=== PATIENT | male | born 1965 | race Caucasian/White ===

== ENCOUNTER 2017-03-30 16:55 | Inpatient (IN) | payer OTHER ==
[2017-03-30] VITALS (8 sets, daily range): BP systolic 71–116; BP diastolic 48–73; PULSE 119–132; TEMP 37.6; O2SAT 91–100; Ht 180.3 cm; Wt 119.5 kg
[~2017-03-30] VITALS: Ht 180.3 cm; Wt 119.5 kg
[~2017-03-30 16:55] MED LIST: CLOP1TAB15 PO; CLR10 PO; ETOMIDATE 2 MG/ML 20 ML VIAL IV ONE; FLNIN NAE; LSXUNK; PANT40TA PO; ROCURONIUM BROMIDE 10 MG/ML 10 ML VIAL IV ONE; SYMIN/8045 INH; [UNRECOGNIZED DRUG - REMARK]
[2017-03-30] MEDS ORDERED: NITROGLYCERIN 0.4 MG SL PER TAB CHARGE ONE (17:00)
[2017-03-30] MEDS ORDERED: RAPID SEQUENCE INDUCTION BAG ONE (17:07)
[2017-03-30 17:32] LABS: ISTAT HEMOGLOBIN 19.7 g/dl (14.0-18.0); ISTAT IONIZED CALCIUM 1.06 mmol/l (1.12-1.32)
[2017-03-30 17:38] LABS: VEN BLD GAS O2 SATURATION 65.7 %; VEN BLOOD GAS BASE EXCESS -5.9 mEq/L
[2017-03-30] MEDS ORDERED: PROPOFOL IV EMULSION 10 MG/ML 100 ML VIAL IV ONE ×2 (17:39→22:10)
[2017-03-30 17:40] LABS: BASO % 0.5 %; BASO ABS # 0.09 K/uL (0-0.2); COMPLETE YES; EOS % 1.7 %; HEMATOCRIT 52.8 % (42-52); IG% 0.6 %; LYMPH % 20.6 %; LYMPH ABS # 3.87 K/uL (1.2-3.4); MEAN CELL VOLUME 94.1 fL (80-100); MEAN CORPUSCULAR HEMOGLOBIN 31.2 pg (25-34); MEAN CORPUSCULAR HGB CONC 33.1 g/dl (32-36); MEAN PLATELET VOLUME 9.4 fL (7.4-10.4); MONO % 5.6 %; PLATELET COUNT 303 K/uL (130-400); RED BLOOD COUNT 5.61 M/uL (4.7-6.1); WHITE BLOOD COUNT 18.76 K/uL (4.8-10.8)
[2017-03-30] MEDS ORDERED: FENTANYL 1250MCG/250ML NSS 250 ML IV PRN (17:45)
[2017-03-30] MEDS ORDERED: PROPOFOL IV EMULSION 10 MG/ML 100 ML VIAL IV PRN (17:45)
[2017-03-30 17:51] LABS: PROTHROMBIN TIME (PATIENT) 10.7 SECONDS (9.0-12.0)
--- NOTE | 2017-03-30 17:54 | DIAGNOSTIC IMAGING REPORT ---
CHEST ONE VIEW PORTABLE CLINICAL HISTORY: EVALUATE RESPIRATORY DISTRESS. DYSPNEA dyspnea COMPARISON STUDY: 12/22/2010 FINDINGS: Interval median sternotomy. Components of congestive failure versus pulmonary edema are present. An endotracheal tube is present 3.6 cm above the mary. IMPRESSION: 1. Endotracheal tube 3.6 cm above the mary. 2. Congestive failure versus pulmonary edema. The above report was generated using voice recognition software. It may contain grammatical, syntax or spelling errors. Electronically signed by: Mark Rascon M.D. 03/30/2017 5:53 PM Dictated Date/Time: 03/30/2017 5:51 PM
[2017-03-30 17:56] LABS: ISTAT ARTERIAL BLOOD GAS HCO3 26 meq/L (19-24); ISTAT ARTERIAL BLOOD GAS PCO2 78 mmHg (35-46); ISTAT ARTERIAL BLOOD GAS PO2 113 mmHg (80-95); ISTAT ARTERIAL BLOOD GAS pH 7.14 (7.35-7.45); ISTAT CARBON DIOXIDE 29 mEq/l (24-31); ISTAT HEMATOCRIT 54 % (42-52); ISTAT HEMOGLOBIN 18.4 g/dl (14.0-18.0); ISTAT SODIUM 135 mEq/L (135-144)
[2017-03-30] MEDS ORDERED: VNTHFA/IN INH (17:56)
[2017-03-30] MEDS ORDERED: ADENOSINE IV SOLN 3 MG/ML 2 ML VIAL ONE (17:58)
[2017-03-30] MEDS ORDERED: RAPID SEQUENCE INDUCTION BAG PRN (18:00)
[2017-03-30] MEDS ORDERED: AMIODARONE / D5W 200 ML IV SCH (18:15)
[2017-03-30] MEDS ORDERED: MIDAZOLAM HCL 5 MG/ML 2ML VIAL IV STA (18:25)
[2017-03-30] MEDS ORDERED: MIDAZOLAM HCL 1 MG/ML 2ML VIAL ONE ×2 (18:26→21:37)
[2017-03-30 18:47] LABS: URINE APPEARANCE CLEAR (CLEAR); URINE COLOR DK YELLOW; URINE EPITHELIAL CELL AUTO 20-30 /lpf (0-5); URINE NITRITE NEG (NEG); URINE SPECIFIC GRAVITY 1.028 (1.000-1.030); UROBILINOGEN NEG (NEG)
[2017-03-30 18:48] LABS: MANUAL MICROSCOPIC REQUIRED? NO; REVIEW REQ? YES
[2017-03-30 18:49] LABS: URINE BILIRUBIN NEG (NEG)
--- NOTE | 2017-03-30 18:54 | EMERGENCY ROOM VISIT NOTE ---
History Report prepared by Farrukhibjulio cesar: Dustin Boykin Under the Supervision of: Dr. Carlos Camacho D.O. First contact with patient: 16:51 Stated Complaint: CARDIAC History of Present Illness The patient is a 51 year old male who presents to the Emergency Room by EMS with complaints of persistent shortness of breath beginning 1.5 hours ago. He also complains of chest "tightness". He has a history of COPD, [place], quadruple bypass, and asthma. The patient's most recent cardiac catheterization was four years ago. He states the has not had a cardiac stress test for "a long time". He has no history of pulmonary edema. The patient states that his current symptoms began suddenly. He states that his shortness of breath is worsened with laying flat. He denies any leg swelling. The patient is on blood thinners. He has been intubated in the past. Source of History: patient Onset: 1.5 hours ago Quality: other (shortness of breath) Timing: other (persistent) Modifying Factors (Worsening): other (laying flat) Associated Symptoms: + chest pain ("tightness") Note: The patient denies any leg swelling. Review of Systems See HPI for pertinent positives & negatives. A total of 10 systems reviewed and were otherwise negative. Past Medical & Surgical Medical Problems: (1) Asthma (2) COPD (chronic obstructive pulmonary disease) (3) Myocardial infarction (4) Respiratory failure with hypoxia Surgical Problems: (1) History of quadruple bypass Family History No pertinent family history stated. Social History Alcohol Use: none Occupation Status: employed Current/Historical Medications Unable to Obtain Active Prescriptions or Reported Meds Allergies Coded Allergies: No Known Allergies (Verified , 05/23/11) Physical Exam Vital Signs Date Time Temp Pulse Resp B/P (MAP) Pulse Ox O2 Delivery O2 Flow Rate FiO2 03/30/17 20:55 70 03/30/17 20:45 113 24 61/50 95 Room Air 03/30/17 20:16 104/73 03/30/17 20:07 97/76 03/30/17 20:06 117 22 97 03/30/17 20:01 97/76 03/30/17 19:51 121 22 98 03/30/17 19:46 105/71 03/30/17 19:45 126 96 03/30/17 19:36 102/69 03/30/17 19:31 92/80 9/5/17 19:30 130 96 03/30/17 19:16 116/85 03/30/17 19:15 133 94 03/30/17 19:01 113/80 03/30/17 19:00 132 22 97 03/30/17 18:57 136 22 121/78 97 Mechanical Ventilator 100 03/30/17 18:36 108/77 03/30/17 18:35 147 22 98 03/30/17 18:31 111/90 03/30/17 18:30 89 Non-Rebreather 15.0 03/30/17 18:27 132/108 03/30/17 18:25 159 22 98 03/30/17 18:21 155/110 03/30/17 18:16 166/101 03/30/17 18:15 170 22 98 03/30/17 18:11 161/119 03/30/17 18:06 146/125 03/30/17 18:05 177 22 97 03/30/17 18:00 178 115/119 96 Mechanical Ventilator 100 03/30/17 17:50 177 170/112 96 Mechanical Ventilator 100 03/30/17 17:40 165 155/105 95 Mechanical Ventilator 100 03/30/17 17:35 164 142/99 94 Mechanical Ventilator 100 03/30/17 17:35 100 03/30/17 17:23 156 03/30/17 17:23 191 86/62 87 Ambu-Bag 03/30/17 17:17 166 105/65 94 Non-Rebreather 15.0 03/30/17 17:11 176 03/30/17 17:00 37.4 169 40 115/91 89 Non-Rebreather 15.0 03/30/17 17:00 Non-Rebreather 15.0 Physical Exam GENERAL: Patient is awake, alert, very anxious appearing and appears to be in significant distress. Very diaphoretic. EYES: The conjunctivae are clear. The pupils are round and reactive. EARS, NOSE, MOUTH AND THROAT: The nose is without any evidence of any deformity. Mucous membranes are moist tongue is midline NECK: The neck is nontender and supple. RESPIRATORY: Diminished throughout with significant tachypnea and conversational dyspnea. Rales throughout the left lung field. CARDIOVASCULAR: Tachycardic but regular. No definite murmur to auscultation. GASTROINTESTINAL: The abdomen is soft. Bowel sounds are present in all quadrants. Abdomen is nontender MUSCULOSKELETAL/EXTREMITIES: There is no evidence of gross deformity full range of motion is noted in the hips and shoulders. Pedal edema bilaterally. SKIN: Cool and diaphoretic. There is no obvious evidence of any rash. There are no petechiae, pallor or cyanosis noted. NEUROLOGIC: Patient is awake alert and oriented x3. Medical Decision & Procedures ER Provider Diagnostic Interpretation: X-ray results as stated below per interpretation by me and the radiologist. CHEST ONE VIEW PORTABLE FINDINGS: Interval median sternotomy. Components of congestive failure versus pulmonary edema are present. An endotracheal tube is present 3.6 cm above the mary. IMPRESSION: 1. Endotracheal tube 3.6 cm above the mary. 2. Congestive failure versus pulmonary edema. The above report was generated using voice recognition software. It may contain grammatical, syntax or spelling errors. Electronically signed by: Mark Rascon M.D. Laboratory Results Test 03/30/17 17:20 03/30/17 17:29 03/30/17 17:42 03/30/17 17:47 Bedside Chloride 105 mEq/L (101-112) Bedside Total CO2 23 mEq/l (24-31) Bedside Blood Urea Nitrogen 19 mg/dl (7-18) Bedside Creatinine 1.0 mg/dl (0.6-1.3) Bedside Glucose (other) 222 mg/dl (70-99) Bedside Ionized Calcium (Bautista) 1.06 mmol/l (1.12-1.32) Venous Blood pH 7.06 (7.36-7.41) Venous Blood Partial Pressure CO2 100 mmHg (38.0-50.0) Venous Blood Partial Pressure O2 46 mmHg Venous Blood HCO3 28 mmol/L Venous Blood Oxygen Saturation 65.7 % Venous Blood Base Excess -5.9 mEq/L Creatine Kinase MB 7.4 ng/ml (0.5-3.6) Creatine Kinase MB Ratio (0-3.0) Pro-B-Type Natriuretic Peptide 2515 pg/ml (0-900) Bedside Hemoglobin 18.4 g/dl (14.0-18.0) Bedside Hematocrit 54 % (42-52) Bedside Sodium 135 mEq/L (135-144) Bedside Potassium 4.3 mEq/L (3.3-5.0) Urine Color DK YELLOW Urine Appearance CLEAR (CLEAR) Urine pH 5.0 (4.5-7.5) Urine Specific [place] 1.028 (1.000-1.030) Urine Protein 2+ (NEG) Urine Glucose (UA) NEG (NEG) Urine Ketones TRACE (NEG) Urine Occult Blood TRACE (NEG) Urine Nitrite NEG (NEG) Urine Bilirubin NEG (NEG) Urine Urobilinogen NEG (NEG) Urine Leukocyte Esterase NEG (NEG) Urine WBC (Auto) 1-5 /hpf (0-5) Urine RBC (Auto) 0-4 /hpf (0-4) Urine Hyaline Casts (Auto) 10-30 /lpf (0-5) Urine Epithelial Cells (Auto) 20-30 /lpf (0-5) Urine Bacteria (Auto) NEG (NEG) Urine Pathogenic Casts 0-3 GRANULAR CASTS /lpf (0) Urine Opiates Screen NEG (NEG) Urine Methadone, Qualitative NEG (NEG) Urine Barbiturates NEG (NEG) Urine Phencyclidine (PCP) Level NEG (NEG) Ur Amphetamine/Methamphetamine NEG (NEG) MDMA (Ecstasy) Screen NEG (NEG) Urine Benzodiazepines Screen NEG (NEG) Urine Cocaine Metabolite NEG (NEG) Urine Marijuana (THC) NEG (NEG) Test 03/30/17 18:19 03/30/17 19:18 03/30/17 19:19 Bedside Lactic Acid Venous 3.04 mmol/L (0.90-1.70) Arterial Blood pH 7.16 (7.35-7.45) Arterial Blood Partial Pressure CO2 80 mmHg (35-46) Arterial Blood Partial Pressure O2 245 mm/Hg (80-95) Arterial Blood HCO3 28 mmol/L (19-24) Arterial Blood Oxygen Saturation 99.6 % (90-95) Arterial Blood Base Excess -3.5 mEq/L (-9-1.8) Arterial Blood Gas Delivery 100% Anjel Test POS (POS) Total Creatine Kinase 323 U/L (39-308) Procalcitonin 0.09 ng/ml (0-0.5) Chemistry Specimen Hemolysis Date/Time Source Procedure Growth Status 03/30/17 19:40 Nasal MRSA DNA Surveillance Screen - Final Specimen Negative for MRSA by DNA Probe Complete Laboratory results per my review. Medications Administered Medications (Trade) Dose Ordered Sig/Wyatt Route Start Time Stop Time Status Last Admin Dose Admin Nitroglycerin (Nitrostat Tab) 0.4 mg STK-MED ONCE .ROUTE 03/30/17 17:00 03/30/17 17:01 DC 03/30/17 17:00 0.4 MG Miscellaneous (Rapid Sequence Induction Bag) 1 ea STK-MED ONCE N/A 03/30/17 17:07 03/30/17 17:08 DC 03/30/17 17:07 1 EA Propofol (Diprivan Iv Emulsion 100ml Vial) 1 dose UD PRN IV 03/30/17 17:45 03/30/17 20:56 DC 03/30/17 17:40 1 DOSE Fentanyl Citrate 250 ml @ 0 mls/hr Q0M PRN IV 03/30/17 17:45 03/30/17 20:56 DC 03/30/17 18:05 10 MLS/HR Adenosine (Adenosine IV) 12 mg STK-MED ONCE .ROUTE 03/30/17 17:58 03/30/17 17:59 DC 03/30/17 18:00 12 MG Amiodarone HCL/ Dextrose 200 ml @ 33.3 mls/hr Q6H1M IV 03/30/17 18:15 03/30/17 22:01 DC 03/30/17 18:18 33.3 MLS/HR Midazolam HCl (Versed Inj) 4 mg STK-MED ONCE .ROUTE 03/30/17 18:26 03/30/17 18:27 DC 03/30/17 18:30 4 MG Furosemide (Lasix Inj) 40 mg NOW STAT IV 03/30/17 19:09 03/30/17 19:10 DC 03/30/17 19:24 40 MG Piperacillin Sod/ Tazobactam Sod (Zosyn Iv) 4.5 gm NOW STAT IV 03/30/17 20:44 03/30/17 20:46 DC 03/30/17 22:07 4.5 GM Sodium Chloride 500 ml @ 999 mls/hr Q31M STAT IV 03/30/17 20:46 03/30/17 21:16 DC 03/30/17 20:46 999 MLS/HR Sodium Bicarbonate (Sodium Bicarbonate 8.4% Inj) 100 ml STK-MED ONCE IV 03/30/17 20:50 03/30/17 20:51 DC 03/30/17 20:50 100 ML Sodium Chloride 38.5 meq/Sodium Bicarbonate 150 meq/Sterile Water 1,150 ml @ 150 mls/hr Q7H40M IV 03/30/17 21:00 03/31/17 02:44 DC 03/30/17 22:05 150 MLS/HR Norepinephrine Bitartrate 8 mg/ Dextrose 508 ml @ 0 mls/hr Q0M PRN IV 03/30/17 20:51 04/29/17 20:50 03/30/17 21:08 47.6 MLS/HR Albumin Human (Albumin 25%) 25 gm ONE ONCE IV 03/30/17 21:00 03/30/17 21:16 DC 03/30/17 22:18 25 GM Midazolam HCl 250 ml @ 0 mls/hr Q0M PRN IV 03/30/17 20:56 04/29/17 20:55 03/30/17 22:06 2 MLS/HR Procedure Endotracheal Intubation Indication respiratory failure. The patient was on 100% oxygen via NRB prior to the procedure. Suction, airway equipment, RSI drugs, respiratory equipment, and appropriate personnel were prepared prior to the initiation of the procedure. A time out was taken. Induction was performed with Etomidate and Rocuronium. After observing the clinical benefit of the medications, the airway was easily visualized utilizing a 4-0 GlideScope. A 8-0 size ETT tube was placed atraumatically to 24 cm at the lip using standard technique. The cuff inflated without signs of malfunction. There were bilateral breath sounds, positive colormetric change, no gastric sounds, a good capnography waveform, and post procedure pulse oximetry was 93%. Post intubation sedation and paralysis was administered using Propofol. There were no complications. ECG Indication: SOB/dyspnea Rate (beats per minute): 164 Rhythm: sinus tachycardia Findings: RBBB, no ectopy, other (Diffuse ST abnormalities) Comparison ECG Date: December 12, 2010 Change: Changes are new. ED Course 1655: The patient was evaluated in room A1. A complete history and physical examination were performed. 1700: Ordered Nitrostat 0.4 mg SL. 1706: The patient was placed on BiPAP. 1719: The patient's blood pressure has dropped slightly to 105/65. Administered rocuronium 80 mg IV and Etomidate 40 mg IV. 1720: I attempted to intubate the patient. Unsuccessfully. His oxygen saturations have decreased to the 60's. 1723: The patient's oxygen saturation has improved to the 80's. 1724: The patient's blood pressure has decreased to 86/62. 1725: I successfully intubated the patient. See the procedure note for details. 1736: The patients blood pressure has increased to 142/99. 1745: Ordered Fentanyl Citrate 250 mL IV Titration, Propofol 1 dose IV Titration 1815: Ordered Amiodarone HCl/Dextrose 200 mL @ 33.3 mL IV. 1825: Ordered Versed Inj 4 mg IV. 1835: I spoke with Dr. Menchaca of the [facility] [place]. The patient will be evaluated for further management and care. Medical Decision Differential diagnosis: Etiologies such as infections, reactive airway disease, pneumonia, pneumothorax , COPD, CHF, cardiac ischemia, pulmonary embolism, musculoskeletal, gastrointestinal, as well as others were entertained. Nursing notes reviewed. Additional history is obtained from the prehospital personnel. The patient is a 51-year-old male who presented to the emergency department for an evaluation of shortness of breath. The patient describes an acute onset of shortness of breath which was accompanied by diaphoresis chest discomfort and orthopnea. The patient called 911 and the patient was brought to the emergency department by ambulance. They were unable to obtain IV access in the patient was unable to tolerate BiPAP prior to arrival. We attempted to place BiPAP in the emergency Department as well as 100% oxygen. Patient continued to decompensate and had very significant respiratory distress. He was intubated in the emergency department with a very significant quick desaturation of his oxygen level during intubation. Ultimately he was intubated and placed on a ventilator. Sedation was ordered. The patient's oxygen saturation was improved but he continued to have acidosis with retention of CO2. He had a wide complex tachycardia which continued to increase. He was tried a course of adenosine which did not affect his rhythm. He was then started on amiodarone. With sedation proper oxygenation Lasix and the amiodarone the patient's rate slowed down. I discussed his case with the on-call [facility] hospitalist group as well as the on-call [facility] geophysics scientist. He was evaluated by the geophysics scientist. He recommended diuresis and also recommended cardioversion. I'm unsure if this affected the rhythm but on follow-up EKG the patient did have what appeared to be more of a sinus tachycardia with first-degree AV block as well as a bundle branch block pattern. This may represent an atrial fibrillation or an atrial flutter with rapid ventricular response that was converted with the cardioversion but I am unsure at this time. The patient was reevaluated multiple times. Certainly the patient was found have a mildly elevated troponin and may require further cardiac workup but his condition continued to improve. Consults Time Called: 1819 Consulting Physician: Dr. Menchaca -MNP Returned Call: 1829 I discussed the patient's case with Dr. Menchaca. The patient will be evaluated for further management. Additional Consults: Time Called: 1829 Consulted Physician: Dr. Perez -Cardiology Returned Call: 1834 Additional Comments: I discussed the patient's case with Dr. Perez. He will come evaluate the patient. Time Called: 2044 Consulted Physician: [facility] Resident Returned Call: 2044 Additional Comments: I made the admitting team aware of the blood pressure change. The patient was ordered a small fluid bolus as well as IV antibiotics. Impression Primary Impression: Respiratory failure Additional Impressions: Pulmonary edema Wide-complex tachycardia Polycythemia Respiratory acidosis NSTEMI (non-ST elevated myocardial infarction) Critical Care I have personally spent greater than 90 minutes of critical care time in the direct management of this patient. This includes bedside care, interpretation of diagnostic studies, and testing, discussion with consultants, patient, and family members, and other required patient management activities. This 90 minutes is in excess of all separately billable procedures. Scribe Attestation The scribe's documentation has been prepared under my direction and personally reviewed by me in its entirety. I confirm that the note above accurately reflects all work, treatment, procedures, and medical decision making performed by me. Departure Information Dispostion Being Evaluated By Hospitalist Prescriptions Unable to Obtain Active Prescriptions or Reported Meds Referrals Roque Gould M.D. (PCP) Problem Qualifiers Primary Impression: Respiratory failure Chronicity: acute Respiratory failure complication: hypoxia and hypercapnia Qualified Codes: J96.01 - Acute respiratory failure with hypoxia; J96.02 - Acute respiratory failure with hypercapnia Additional Impressions: Pulmonary edema Chronicity: acute Qualified Codes: J81.0 - Acute pulmonary edema
[2017-03-30 18:59] LABS: URINE PATH CASTS 0-3 GRANULAR CASTS /lpf (0)
[2017-03-30 18:59] LABS: ALB/GLOB RATIO 0.8 (0.9-2); ALKALINE PHOSPHATASE 112 U/L (45-117); ALT/SGPT 29 U/L (12-78); BLOOD UREA NITROGEN 13 mg/dl (7-18); BUN/CREATININE RATIO 10.2 (10-20); CALCIUM 8.2 mg/dl (8.5-10.1); CARBON DIOXIDE 26 mmol/L (21-32); CHLORIDE 102 mmol/L (98-107); GLUCOSE 255 mg/dl (70-99); SODIUM 137 mmol/L (136-145)
[2017-03-30 19:00] LABS: BENZODIAZEPINE, URINE NEG (NEG); COCAINE,URINE NEG (NEG); PHENCYCLIDINE, URINE NEG (NEG)
[2017-03-30] MEDS ORDERED: FUROSEMIDE 40 MG/4 ML VIAL IV STA (19:09)
[2017-03-30 19:31] LABS: ARTERIAL BLD GAS O2 SATURATION 99.6 % (90-95); ARTERIAL BLOOD GAS BASE EXCESS -3.5 mEq/L (-9-1.8); ARTERIAL BLOOD GAS HCO3 28 mmol/L (19-24); ARTERIAL BLOOD GAS PO2 245 mm/Hg (80-95)
[2017-03-30 19:33] LABS: ALLEN TEST POS (POS); O2 ADMINISTRATION 100%
[2017-03-30 19:35] LABS: ARTERIAL BLOOD GAS pH 7.16 (7.35-7.45)
[2017-03-30 20:10] LABS: POTASSIUM 4.6 mmol/L (3.5-5.1)
--- NOTE | 2017-03-30 20:24 | Cardiology Consultation ---
Cardiology Consultation Date of Consultation: Mar 30, 2017. Requesting Physician: Doug Reason for Consultation: tachycardia Pt evaluation today including: physical exam, chart review, lab review, review of studies, conversation w/ security and privacy consultant, review of inpatient medication list, conversation w/ attending History of Present Illness The patient is a 51-year-old gentleman with a past medical history of coronary artery disease and congestive heart failure presented to [facility] after approximately 1-2 hours of worsening dyspnea. According to the history the patient experienced the relatively acute onset of dyspnea and chest tightness. He summoned an ambulance and brought to [facility] where he was discovered to be quite dyspneic and hypoxic. Patient did have a decompensation required endotracheal intubation with mechanical ventilation. Little additional history was obtained prior to intubation. Past Medical/Surgical History Coronary artery disease Patient had non ST elevation myocardial infarction 2010 which led to coronary angiography. He was discovered to have left main coronary disease and was referred for surgical intervention. Patient underwent 4 vessel bypas in 2010 with IRBY to LAD, saphenous vein graft to diagonal, om and PDA. Ischemic cardiomyopathy, last echocardiogram reported to be EF of 45 percent History of right femoral artery injury during cardiac catheterization Hyperlipidemia Asthma Hypertension Past surgical history Coronary artery bypass grafting x4 2010 Operative repair of right femoral artery injury 2010 Social History Smoking Status: Unknown if Ever Smoked Review of Systems Review of systems cannot be obtained as the patient is currently sedated and intubated Allergies Coded Allergies: No Known Allergies (Verified , 05/23/11) Medications Current Inpatient Medications Medications (Trade) Dose Ordered Sig/Wyatt Route Start Time Stop Time Status Last Admin Dose Admin Propofol (Diprivan Iv Emulsion 100ml Vial) 1 dose UD PRN IV 03/30/17 17:45 04/02/17 17:44 03/30/17 17:40 1 DOSE Fentanyl Citrate 250 ml @ 0 mls/hr Q0M PRN IV 03/30/17 17:45 04/13/17 17:44 03/30/17 18:05 10 MLS/HR Amiodarone HCL/ Dextrose 200 ml @ 33.3 mls/hr Q6H1M IV 03/30/17 18:15 03/31/17 00:15 03/30/17 18:18 33.3 MLS/HR Physical Exam Vital Signs Past 12 Hours Date Time Temp Pulse Resp B/P (MAP) Pulse Ox O2 Delivery O2 Flow Rate FiO2 03/30/17 19:46 105/71 03/30/17 19:45 126 96 03/30/17 19:36 102/69 03/30/17 19:31 92/80 03/30/17 19:30 130 96 03/30/17 19:16 116/85 03/30/17 19:15 133 94 03/30/17 19:01 113/80 03/30/17 19:00 132 22 97 03/30/17 18:57 136 22 121/78 97 Mechanical Ventilator 100 03/30/17 18:36 108/77 03/30/17 18:35 147 22 98 03/30/17 18:31 111/90 03/30/17 18:30 89 Non-Rebreather 15.0 03/30/17 18:27 132/108 03/30/17 18:25 159 22 98 03/30/17 18:21 155/110 03/30/17 18:16 166/101 03/30/17 18:15 170 22 98 03/30/17 18:11 161/119 03/30/17 18:06 146/125 03/30/17 18:05 177 22 97 03/30/17 18:00 178 115/119 96 Mechanical Ventilator 100 03/30/17 17:50 177 170/112 96 Mechanical Ventilator 100 03/30/17 17:40 165 155/105 95 Mechanical Ventilator 100 03/30/17 17:35 164 142/99 94 Mechanical Ventilator 100 03/30/17 17:35 100 03/30/17 17:23 156 03/30/17 17:23 191 86/62 87 Ambu-Bag 03/30/17 17:17 166 105/65 94 Non-Rebreather 15.0 03/30/17 17:11 176 03/30/17 17:00 37.4 169 40 115/91 89 Non-Rebreather 15.0 03/30/17 17:00 Non-Rebreather 15.0 Currently intubated and sedated HEENT:The sclerae are anicteric. Neuro: Unable to cooperate with the exam Neck: Redundant tissue He has palpable carotid pulses bilaterally without bruits on auscultation. The thyroid is not enlarged. Lungs: Coarse upper airway sounds with crackles throughout all lung hall. There is expiratory wheezing. He is using accessory muscles or respiration. Cardiac: Heart demonstrates a regular rhythm. Normal S1 and S2. Soft holosystolic. Pulses: The patient has palpable radial pulses bilaterally that are equal in intensity. He has good dorsalis pedis pulses bilateral Extremities: There was no evidence of hypoperfusion. There is no cyanosis or clubbing. There is no edema. Skin: Patient does have erythema to this patchy macules over his entire body. Data Laboratory Results: Last 24 Hours Test 03/30/17 17:20 03/30/17 17:29 03/30/17 17:42 03/30/17 17:47 Bedside Hemoglobin 19.7 g/dl 18.4 g/dl Bedside Hematocrit 58 % 54 % Bedside Sodium 137 mEq/L 135 mEq/L Bedside Potassium 6.0 mEq/L 4.3 mEq/L Bedside Chloride 105 mEq/L Bedside Total CO2 23 mEq/l Anion Gap 16.0 mmol/L 9.0 mmol/L Bedside Blood Urea Nitrogen 19 mg/dl Bedside Creatinine 1.0 mg/dl Bedside Glucose (other) 222 mg/dl Bedside Ionized Calcium (Bautista) 1.06 mmol/l White Blood Count 18.76 K/uL Red Blood Count 5.61 M/uL Hemoglobin 17.5 g/dL Hematocrit 52.8 % Mean Corpuscular Volume 94.1 fL Mean Corpuscular Hemoglobin 31.2 pg Mean Corpuscular Hemoglobin Concent 33.1 g/dl Platelet Count 303 K/uL Mean Platelet Volume 9.4 fL Neutrophils (%) (Auto) 71.0 % Lymphocytes (%) (Auto) 20.6 % Monocytes (%) (Auto) 5.6 % Eosinophils (%) (Auto) 1.7 % Basophils (%) (Auto) 0.5 % Neutrophils # (Auto) 13.31 K/uL Lymphocytes # (Auto) 3.87 K/uL Monocytes # (Auto) 1.05 K/uL Eosinophils # (Auto) 0.32 K/uL Basophils # (Auto) 0.09 K/uL RDW Standard Deviation 46.9 fL RDW Coefficient of Variation 13.6 % Immature Granulocyte % (Auto) 0.6 % Immature Granulocyte # (Auto) 0.12 K/uL Prothrombin Time 10.7 SECONDS Prothromb Time International Ratio 1.0 Activated Partial Thromboplast Time 25.2 SECONDS Partial Thromboplastin Ratio 1.0 Venous Blood pH 7.06 Venous Blood Partial Pressure CO2 100 mmHg Venous Blood Partial Pressure O2 46 mmHg Venous Blood HCO3 28 mmol/L Venous Blood Oxygen Saturation 65.7 % Venous Blood Base Excess -5.9 mEq/L Sodium Level 137 mmol/L Potassium Level mmol/L Chloride Level 102 mmol/L Carbon Dioxide Level 26 mmol/L Blood Urea Nitrogen 13 mg/dl Creatinine 1.30 mg/dl Est Creatinine Clear Calc Drug Dose 89.2 ml/min Estimated GFR () 72.2 Estimated GFR (Non- 62.3 BUN/Creatinine Ratio 10.2 Random Glucose 255 mg/dl Calcium Level 8.2 mg/dl Total Bilirubin 0.3 mg/dl Aspartate Amino Transf (AST/SGOT) U/L Alanine Aminotransferase (ALT/SGPT) 29 U/L Alkaline Phosphatase 112 U/L Total Creatine Kinase U/L Creatine Kinase MB 7.4 ng/ml Creatine Kinase MB Ratio Troponin I 0.515 ng/ml Pro-B-Type Natriuretic Peptide 2515 pg/ml Total Protein 7.3 gm/dl Albumin 3.3 gm/dl Globulin 4.0 gm/dl Albumin/Globulin Ratio 0.8 Chemistry Specimen Hemolysis Bedside Blood Gas pH (LAB) 7.14 Bedside Blood Gas pCO2 (LAB) 78 mmHg Bedside Blood Gas pO2 (LAB) 113 mmHg Bedside Blood Gas HCO3 (LAB) 26 meq/L Bedside Blood Gas Total CO2 29 mEq/l Bedside Blood Gas Base Excess (LAB) -3.0 meq/L Bedside Blood Gas O2 Saturation 96.0 % Urine Color DK YELLOW Urine Appearance CLEAR Urine pH 5.0 Urine Specific [place] 1.028 Urine Protein 2+ Urine Glucose (UA) NEG Urine Ketones TRACE Urine Occult Blood TRACE Urine Nitrite NEG Urine Bilirubin NEG Urine Urobilinogen NEG Urine Leukocyte Esterase NEG Urine WBC (Auto) 1-5 /hpf Urine RBC (Auto) 0-4 /hpf Urine Hyaline Casts (Auto) 10-30 /lpf Urine Epithelial Cells (Auto) 20-30 /lpf Urine Bacteria (Auto) NEG Urine Pathogenic Casts 0-3 GRANULAR CASTS /lpf Urine Opiates Screen NEG Urine Methadone, Qualitative NEG Urine Barbiturates NEG Urine Phencyclidine (PCP) Level NEG Ur Amphetamine/Methamphetamine NEG MDMA (Ecstasy) Screen NEG Urine Benzodiazepines Screen NEG Urine Cocaine Metabolite NEG Urine Marijuana (THC) NEG Test 03/30/17 18:19 03/30/17 19:18 03/30/17 19:19 Bedside Lactic Acid Venous 3.04 mmol/L Arterial Blood pH 7.16 Arterial Blood Partial Pressure CO2 80 mmHg Arterial Blood Partial Pressure O2 245 mm/Hg Arterial Blood HCO3 28 mmol/L Arterial Blood Oxygen Saturation 99.6 % Arterial Blood Base Excess -3.5 mEq/L Arterial Blood Gas Delivery 100% Anjel Test POS Potassium Level 4.6 mmol/L Aspartate Amino Transf (AST/SGOT) 48 U/L Total Creatine Kinase 323 U/L Chemistry Specimen Hemolysis Imaging: Chest x-ray demonstrated evidence of pulmonary vascular congestion EKG: Wide complex tachycardia Telemetry reviewed: Tachycardia with PVCs A limited bedside echocardiogram was performed which revealed reduced LV systolic function. RV size and function appear to be normal. There was no pericardial effusion. Assessment & Plan 1. Acute decompensated left ventricular failure: Bedside echocardiogram was performed in order to exclude pericardial effusion. Patient did appear to have some compromised LV systolic function although endocardial definition was poor. He clearly has an element of pulmonary vascular congestion. The etiology is unclear. There is a possibility that he had an arrhythmia leading up to this event which may have resolved prior to arrival. This could been atrial fibrillation. The initial rhythms are also concerning for an atrial flutter but that did not respond to any particular treatments and the current rhythm is clearly sinus. Other etiologies would include hypertensive urgency, acute valvular lesion or ischemic event. He does not appear to have a very loud murmur suggestive of an acute valvular injury. Certainly could have had an ischemic event. This point the primary goal is reducing his pulmonary vascular congestion and supporting his hemodynamics. He has been given Lasix. Nitrates could also be used if the pressure allows. Positive pressure ventilation should also help his oxygenation. 2. Coronary artery disease: Patient certainly has a history of coronary disease and may have suffered another ischemic event. He does have a mildly positive troponin already. He did have some chest pressure leading up to his admission but this is most likely related to the severe pulmonary vascular congestion. At some point we will need to explore the possibility of an ischemic event. Placing the patient on heparin infusion currently would be reasonable. 3. Tachycardia: The initial tachycardia appeared to be in SVT with atypical right bundle branch block. There are no obvious P waves and there was some concern for an atrial flutter. The patient did not respond to adenosine infusion or attempt at electrical cardioversion. Amiodarone was also employ briefly. As the patient's clinical condition stabilized he has tachycardia improved in the current telemetry would suggest that he does have a sinus rhythm at this time. Final recommendations: Continue attempts at diuresis Consider nitroglycerin infusion or paste for preload reduction if the blood pressure allows Systemic heparinization while we trend his enzymes Echocardiogram in the morning
[2017-03-30] MEDS ORDERED: PIPERACILLIN/TAZOBACTAM 4.5 GM/100ML D5W IV STA (20:44)
[2017-03-30] MEDS: LEVAQUIN 750MG / 150ML D5W IV STA ×2 (20:44→22:07)
[2017-03-30] MEDS ORDERED: SODIUM CHLORIDE 0.9% 500ML 500 ML IV STA (20:46)
[2017-03-30] MEDS ORDERED: SODIUM BICARB 8.4% INJ 50 MEQ/50 ML SYR IV ONE (20:50)
[2017-03-30] MEDS ORDERED: SOD CHLOR 14.6% 2.5MEQ/ML 38.5 MEQ, SODIUM BICARBONATE 8.4% INJ 150 MEQ in STERILE WATE... IV SCH (21:00)
[2017-03-30] MEDS ORDERED: ALBUMIN HUMAN 25% 12.5 GM/50 ML VIAL IV ONE (21:00)
[2017-03-30] MEDS: NOREPINEPHRINE BIT INJ 8 MG in DEXTROSE 5% 500ML 500 ML IV PRN (21:08)
[2017-03-30] MEDS ORDERED: LEVALBUTEROL 0.63MG/3 ML NEB INH STA (21:40)
[2017-03-30] MEDS ORDERED: IPRATROPIUM BROMIDE HFA INHALER INH STA (21:40)
[2017-03-30] MEDS ORDERED: LEValbuterol HFA 15GM INHALER INH STA (21:40)
[2017-03-30] MEDS: IPRATROPIUM BROMIDE NEB SOLN 0.02% 2.5 ML VIAL INH STA ×2 (21:40→22:05)
[2017-03-30] MEDS: MIDAZOLAM 125MG/250ML D5W 250 ML IV PRN (22:06)
[2017-03-30] MEDS ORDERED: INSULIN IV INFUSION PROTOCOL SCH (22:11)
[2017-03-30] MEDS ORDERED: GLUCOSE 40% GEL 15 GM TUBE PO PRN (22:15)
[2017-03-30] MEDS ORDERED: GLUCOSE 10 TABS/TUBE PO PRN (22:15)
[2017-03-30] MEDS ORDERED: VANCOMYCIN INJ 2,750 MG in SODIUM CHLORIDE 0.9% 500ML 500 ML IV ONE (22:15)
[2017-03-30] MEDS ORDERED: PIPERACILL/TAZOBAC CONSULT ACTIVE PRN (22:15)
[2017-03-30] MEDS ORDERED: DEXTROSE 50% 50 ML SYR IV PRN (22:15)
[2017-03-30] MEDS ORDERED: VANCOMYCIN CONSULT ACTIVE PRN (22:15)
[2017-03-30] MEDS ORDERED: GLUCAGON FOR INJ 1 MG VIAL SQ PRN (22:15)
--- NOTE | 2017-03-30 22:24 | History and Physical ---
History & Physical Date & Time of Service: Mar 30, 2017 at 22:24 Chief Complaint: Respiratory Failure With Hypoxia Primary Care Physician: Roque Gould M.D. History of Present Illness Source: hospital records 51-year-old male with a past medical history of coronary artery disease status post quadruple bypass, hyperlipidemia, asthma, hypertension presented to the ER with complaints of persistent shortness of breath and chest tightness which started 1.5 hours prior to arrival. In the ER he was found to have a wide complex tachycardia and was hypoxic. He was emergently intubated and cardiology was consulted. Chest x-ray was concerning for pulmonary edema and was given IV Lasix in the ER. Patient was treated with adenosine infusion and electrical cardioversion was also attempted unsuccessfully. He also had an amiodarone drip briefly. His blood pressure started to drop and he was started on bicarbonate drip , albumin and pressors and transferred to ICU. Past Medical/Surgical History Medical Problems: (1) Asthma Status: Chronic (2) COPD (chronic obstructive pulmonary disease) Status: Chronic (3) Myocardial infarction Status: Chronic Surgical Problems: (1) History of quadruple bypass Status: Chronic Family History noncontributory Social History Smoking Status: Unknown if Ever Smoked Smokeless Tobacco Use: No Alcohol Use: none Drug Use: none Marital Status: Housing status: lives with family Occupational Status: employed Immunizations History of Influenza Vaccine: Yes History of Tetanus Vaccine?: Yes History of Pneumococcal: Yes History of Hepatitis B Vaccine: Unknown Multi-Drug Resistant Organisms History of MDRO: No Allergies Coded Allergies: No Known Allergies (Verified , 05/23/11) Home Medications Scheduled Aspirin (Aspirin Low Strength), 324 MG NJ DAILY Atorvastatin (Atorvastatin Calcium), 80 MG NJ QAM Budesonide/Formoterol Fumarate (Symbicort 80-4.5 Mcg/Act), 2 PUFFS INH BIDR Insulin Aspart (Novolog Flexpen), 0 UNITS SC Q4H Piperacillin/Tazobactam Sod (Zosyn 4-0.5 gm), 4.5 MG IV Q6H Review of Systems Unable to obtain as the patient is currently intubated Physical Exam Vital Signs Date Time Temp Pulse Resp B/P (MAP) Pulse Ox O2 Delivery O2 Flow Rate FiO2 03/30/17 21:10 115 24 93/57 100 Mechanical Ventilator 03/30/17 20:55 70 03/30/17 20:45 113 24 61/50 95 Room Air 03/30/17 20:16 104/73 03/30/17 20:07 97/76 03/30/17 20:06 117 22 97 03/30/17 20:01 97/76 03/30/17 19:51 121 22 98 03/30/17 19:46 105/71 03/30/17 19:45 126 96 03/30/17 19:36 102/69 03/30/17 19:31 92/80 03/30/17 19:30 130 96 03/30/17 19:16 116/85 03/30/17 19:15 133 94 03/30/17 19:01 113/80 03/30/17 19:00 132 22 97 03/30/17 18:57 136 22 121/78 97 Mechanical Ventilator 100 03/30/17 18:36 108/77 03/30/17 18:35 147 22 98 03/30/17 18:31 111/90 03/30/17 18:30 89 Non-Rebreather 15.0 03/30/17 18:27 132/108 03/30/17 18:25 159 22 98 03/30/17 18:21 155/110 03/30/17 18:16 166/101 03/30/17 18:15 170 22 98 03/30/17 18:11 161/119 03/30/17 18:06 146/125 03/30/17 18:05 177 22 97 03/30/17 18:00 178 115/119 96 Mechanical Ventilator 100 03/30/17 17:50 177 170/112 96 Mechanical Ventilator 100 03/30/17 17:40 165 155/105 95 Mechanical Ventilator 100 03/30/17 17:35 164 142/99 94 Mechanical Ventilator 100 03/30/17 17:35 100 03/30/17 17:23 156 03/30/17 17:23 191 86/62 87 Ambu-Bag 03/30/17 17:17 166 105/65 94 Non-Rebreather 15.0 03/30/17 17:11 176 03/30/17 17:00 37.4 169 40 115/91 89 Non-Rebreather 15.0 03/30/17 17:00 Non-Rebreather 15.0 General Appearance: + obese, + pertinent finding (intubated) Eyes: normal inspection Neck: supple Respiratory/Chest: + respiratory distress, + accessory muscle use, + crackles, + wheezing Cardiovascular: + tachycardia Abdomen/GI: normal bowel sounds, non tender, soft Neurologic/Psych: + pertinent finding (sedated) Skin: + pertinent finding (maculopapular lesions on bilateral thighs and trunk ) Diagnostics Laboratory Results Results Past 24 Hours Test 03/30/17 17:20 03/30/17 17:29 03/30/17 17:42 03/30/17 17:47 Range/Units Bedside Hemoglobin 19.7 18.4 14.0-18.0 g/dl Bedside Hematocrit 58 54 42-52 % Bedside Sodium 137 135 135-144 mEq/L Bedside Potassium 6.0 4.3 3.3-5.0 mEq/L Bedside Chloride 105 101-112 mEq/L Bedside Total CO2 23 24-31 mEq/l Anion Gap 16.0 9.0 3-11 mmol/L Bedside Blood Urea Nitrogen 19 7-18 mg/dl Bedside Creatinine 1.0 0.6-1.3 mg/dl Bedside Glucose (other) 222 70-99 mg/dl Bedside Ionized Calcium (Bautista) 1.06 1.12-1.32 mmol/l White Blood Count 18.76 4.8-10.8 K/uL Red Blood Count 5.61 4.7-6.1 M/uL Hemoglobin 17.5 14.0-18.0 g/dL Hematocrit 52.8 42-52 % Mean Corpuscular Volume 94.1 80-100 fL Mean Corpuscular Hemoglobin 31.2 25-34 pg Mean Corpuscular Hemoglobin Concent 33.1 32-36 g/dl Platelet Count 303 130-400 K/uL Mean Platelet Volume 9.4 7.4-10.4 fL Neutrophils (%) (Auto) 71.0 % Lymphocytes (%) (Auto) 20.6 % Monocytes (%) (Auto) 5.6 % Eosinophils (%) (Auto) 1.7 % Basophils (%) (Auto) 0.5 % Neutrophils # (Auto) 13.31 1.4-6.5 K/uL Lymphocytes # (Auto) 3.87 1.2-3.4 K/uL Monocytes # (Auto) 1.05 0.11-0.59 K/uL Eosinophils # (Auto) 0.32 0-0.5 K/uL Basophils # (Auto) 0.09 0-0.2 K/uL RDW Standard Deviation 46.9 36.4-46.3 fL RDW Coefficient of Variation 13.6 11.5-14.5 % Immature Granulocyte % (Auto) 0.6 % Immature Granulocyte # (Auto) 0.12 0.00-0.02 K/uL Prothrombin Time 10.7 9.0-12.0 SECONDS Prothromb Time International Ratio 1.0 0.9-1.1 Activated Partial Thromboplast Time 25.2 21.0-31.0 SECONDS Partial Thromboplastin Ratio 1.0 Venous Blood pH 7.06 7.36-7.41 Venous Blood Partial Pressure CO2 100 38.0-50.0 mmHg Venous Blood Partial Pressure O2 46 mmHg Venous Blood HCO3 28 mmol/L Venous Blood Oxygen Saturation 65.7 % Venous Blood Base Excess -5.9 mEq/L Sodium Level 137 136-145 mmol/L Potassium Level 3.5-5.1 mmol/L Chloride Level 102 98-107 mmol/L Carbon Dioxide Level 26 21-32 mmol/L Blood Urea Nitrogen 13 7-18 mg/dl Creatinine 1.30 0.60-1.40 mg/dl Est Creatinine Clear Calc Drug Dose 89.2 ml/min Estimated GFR () 72.2 Estimated GFR (Non- 62.3 BUN/Creatinine Ratio 10.2 10-20 Random Glucose 255 70-99 mg/dl Calcium Level 8.2 8.5-10.1 mg/dl Total Bilirubin 0.3 0.2-1 mg/dl Aspartate Amino Transf (AST/SGOT) 15-37 U/L Alanine Aminotransferase (ALT/SGPT) 29 12-78 U/L Alkaline Phosphatase 112 45-117 U/L Total Creatine Kinase 39-308 U/L Creatine Kinase MB 7.4 0.5-3.6 ng/ml Creatine Kinase MB Ratio 0-3.0 Troponin I 0.515 0-0.045 ng/ml Pro-B-Type Natriuretic Peptide 2515 0-900 pg/ml Total Protein 7.3 6.4-8.2 gm/dl Albumin 3.3 3.4-5.0 gm/dl Globulin 4.0 2.5-4.0 gm/dl Albumin/Globulin Ratio 0.8 0.9-2 Chemistry Specimen Hemolysis Bedside Blood Gas pH (LAB) 7.14 7.35-7.45 Bedside Blood Gas pCO2 (LAB) 78 35-46 mmHg Bedside Blood Gas pO2 (LAB) 113 80-95 mmHg Bedside Blood Gas HCO3 (LAB) 26 19-24 meq/L Bedside Blood Gas Total CO2 29 24-31 mEq/l Bedside Blood Gas Base Excess (LAB) -3.0 -9-1.8 meq/L Bedside Blood Gas O2 Saturation 96.0 90-95 % Urine Color DK YELLOW Urine Appearance CLEAR CLEAR Urine pH 5.0 4.5-7.5 Urine Specific [place] 1.028 1.000-1.030 Urine Protein 2+ NEG Urine Glucose (UA) NEG NEG Urine Ketones TRACE NEG Urine Occult Blood TRACE NEG Urine Nitrite NEG NEG Urine Bilirubin NEG NEG Urine Urobilinogen NEG NEG Urine Leukocyte Esterase NEG NEG Urine WBC (Auto) 1-5 0-5 /hpf Urine RBC (Auto) 0-4 0-4 /hpf Urine Hyaline Casts (Auto) 10-30 0-5 /lpf Urine Epithelial Cells (Auto) 20-30 0-5 /lpf Urine Bacteria (Auto) NEG NEG Urine Pathogenic Casts 0-3 GRANULAR CASTS 0 /lpf Urine Opiates Screen NEG NEG Urine Methadone, Qualitative NEG NEG Urine Barbiturates NEG NEG Urine Phencyclidine (PCP) Level NEG NEG Ur Amphetamine/Methamphetamine NEG NEG MDMA (Ecstasy) Screen NEG NEG Urine Benzodiazepines Screen NEG NEG Urine Cocaine Metabolite NEG NEG Urine Marijuana (THC) NEG NEG Test 03/30/17 18:19 03/30/17 19:18 03/30/17 19:19 Range/Units Bedside Lactic Acid Venous 3.04 0.90-1.70 mmol/L Arterial Blood pH 7.16 7.35-7.45 Arterial Blood Partial Pressure CO2 80 35-46 mmHg Arterial Blood Partial Pressure O2 245 80-95 mm/Hg Arterial Blood HCO3 28 19-24 mmol/L Arterial Blood Oxygen Saturation 99.6 90-95 % Arterial Blood Base Excess -3.5 -9-1.8 mEq/L Arterial Blood Gas Delivery 100% Anjel Test POS POS Potassium Level 4.6 3.5-5.1 mmol/L Aspartate Amino Transf (AST/SGOT) 48 15-37 U/L Total Creatine Kinase 323 39-308 U/L Procalcitonin 0.09 0-0.5 ng/ml Chemistry Specimen Hemolysis Microbiology Results 03/30/17 Blood Culture, Received Pending 03/30/17 Blood Culture, Received Pending Diagnostic Radiology CHEST ONE VIEW PORTABLE CLINICAL HISTORY: EVALUATE RESPIRATORY DISTRESS. DYSPNEA dyspnea COMPARISON STUDY: 12/22/2010 FINDINGS: Interval median sternotomy. Components of congestive failure versus pulmonary edema are present. An endotracheal tube is present 3.6 cm above the mary. IMPRESSION: 1. Endotracheal tube 3.6 cm above the mary. 2. Congestive failure versus pulmonary edema. EKG Wide complex tachycardia Right bundle branch block Right axis deviation Abnormal ECG When compared with ECG of 22-DEC-2010 08:16, Right bundle branch block is now Present Rate has increased Right axis deviation is present Confirmed by BAR PERERA MD ([id number]) on 03/30/2017 7:45:36 PM Impression Assessment and Plan 51-year-old male with a past medical history of coronary artery disease status post quadruple bypass, hyperlipidemia, asthma, hypertension presented to the ER with complaints of persistent shortness of breath and chest tightness which started 1.5 hours prior to arrival. Wide complex tachycardia on presentation unresponsive to adenosine, amiodarone and cardioversion Acute hypoxic respiratory failure: -Status Post intubation - methylprednisone 60 mg every 8 hours - Continue Symbicort, Atrovent and Xopenex - Vancomycin and Zosyn Coronary artery disease status post quadruple bypass in 2010 - Initial troponin 0.515, troponins trended every 8 hours - Started on IV heparin - Echo ordered Attending Addendum: I have physically seen and examined this patient, have directed the resident's medical activities, and agree with the H&P as noted above with the following exceptions as noted. The patient is sedated, on the ventilator. HEENT--PERRL, mucous membranes and oropharynx dry. Neck--no JVD or bruits, thyroid normal, trachea midline, no adenopathy. Heart--tachycardic and regular, no murmurs, rubs or gallops. Lungs--few coarse breath sounds bilaterally, with accessory muscle use. Abdomen--normal bowel sounds and soft, nontender and nondistended, no hernias or masses, obese. Extremities--no cyanosis, clubbing or edema. There are good distal pulses b/l. Dermatologic--normal skin turgor, normal color, warm and dry, no abnormal lymph nodes, no rash. Neurologic--deferred on ventilator Rheumatologic--deferred on ventilator Psychiatric--deferred on ventilator. Assessment and Plan: 1. Acute respiratory failure with hypoxia and hypercapnia on the ventilator / septic shock--admit to the ICU. Give albumin 25 g IV. Normal saline 500 mL bolus now. Sodium bicarbonate 2 A now. / NSS with 3 A of sodium bicarbonate at 150 ML's per hour. Vancomycin IV, Zosyn IV and Levaquin IV. Solu-Medrol 60 mg IV every 6 hours Adjust ventilator settings. ABG now and then every morning. CBC with differential, chemistry profile, magnesium, phosphorus, PT and PTT every morning. Continue propofol drip for sedation Add Versed drip for sedation Repeat chest x-ray in the a.m. Conservation Policy Analyst consulted. Predator Control Trapper Dr. Perez consulted. Give Lasix if signs of fluid overload overnight. 2. CAD/status post quadruple bypass 2010-- Initial troponin elevated 0.515, may just be secondary to earlier wide-complex tachycardia. Follow serial troponins. Continue IV heparin. 70 minutes of critical care time spent with the patient Level of Care Critical Care Advanced Directives Existing Advance Directive: No Existing Living Will: No Existing Power of Engineering Associate: No Resuscitation Status FULL RESUSCITATION VTE Prophylaxis VTE Risk Assessment Done? Y/N: Yes Risk Level: Moderate Given or contraindicated: SCD's Social Service Consult None Apply Resident Tracking Resident Involvement: Resident Care Provided Care Provided: Adult Hospital Medicine
[2017-03-30] MEDS: METHYLPREDNISOLONE IV 60 MG in SYRINGE 0 ML IV SCH (22:34)
[2017-03-30 22:47] LABS: ISTAT ALLEN TEST Pass; ISTAT ARTERIAL BLOOD GAS HCO3 28 meq/L (19-24); ISTAT ARTERIAL BLOOD GAS PCO2 69 mmHg (35-46); ISTAT ARTERIAL BLOOD GAS PO2 87 mmHg (80-95); ISTAT ARTERIAL BLOOD GAS pH 7.22 (7.35-7.45); ISTAT CARBON DIOXIDE 30 mEq/l (24-31); ISTAT DELIVERY SYSTEM Ventilator; ISTAT FIO2 70 %; ISTAT PEEP 5; ISTAT RATE 24; ISTAT SITE R Radial; VE 11.3; Vt 600
[2017-03-30] MEDS ORDERED: CISATRACURIUM IV BOLUS & DRIP IV STA (23:37)
[2017-03-30] MEDS ORDERED: HEPARIN 25,000 UNIT/500ML D5W 500 ML IV SCH (23:45)
[2017-03-31] VITALS (61 sets, daily range): BP systolic 75–110; BP diastolic 45–85; PULSE 99–127; TEMP 37.2–38.5; O2SAT 90–98
[2017-03-31] MEDS ORDERED: CISATRACURIUM BESYLATE IV ONE
[2017-03-31] MEDS ORDERED: IPRATROPIUM BROMIDE NEB SOLN 0.02% 2.5 ML VIAL INH SCH
[2017-03-31 01:10] LABS: ISTAT ALLEN TEST Pass; ISTAT ARTERIAL BLOOD GAS HCO3 28 meq/L (19-24); ISTAT ARTERIAL BLOOD GAS PCO2 61 mmHg (35-46); ISTAT ARTERIAL BLOOD GAS PO2 75 mmHg (80-95); ISTAT ARTERIAL BLOOD GAS pH 7.27 (7.35-7.45); ISTAT CARBON DIOXIDE 30 mEq/l (24-31); ISTAT DELIVERY SYSTEM Ventilator; ISTAT FIO2 70 %; ISTAT PEEP 5; ISTAT RATE 20; ISTAT SITE R Radial; Vt 540
[2017-03-31] MEDS: HEPARIN 25,000 UNIT/500ML D5W 500 ML IV PRN ×2 (01:40→18:25)
[2017-03-31] MEDS: CISATRACURIUM BESYLATE INJ 40 MG in SODIUM CHLORIDE 0.9% 100ML 80 ML IV PRN ×4 (02:20→18:24)
[2017-03-31] MEDS ORDERED: NURSING VERBAL MED ORDER ONE ×4 (02:45→17:30)
[2017-03-31] MEDS: LEValbuterol HFA 15GM INHALER INH SCH ×4 (02:51→20:23)
[2017-03-31] MEDS: IPRATROPIUM BROMIDE HFA INHALER INH SCH ×4 (02:51→20:23)
[2017-03-31] MEDS ORDERED: LEVALBUTEROL 0.63MG/3 ML NEB INH SCH (03:00)
[2017-03-31 03:18] LABS: HEMATOCRIT 51.3 % (42-52); MEAN CELL VOLUME 93.3 fL (80-100); MEAN CORPUSCULAR HEMOGLOBIN 31.6 pg (25-34); MEAN PLATELET VOLUME 9.3 fL (7.4-10.4); PLATELET COUNT 292 K/uL (130-400); WHITE BLOOD COUNT 22.57 K/uL (4.8-10.8)
[2017-03-31 03:29] LABS: MEAN CORPUSCULAR HGB CONC 33.9 g/dl (32-36)
[2017-03-31 03:40] LABS: BUN/CREATININE RATIO 9.6 (10-20); CALCIUM 7.5 mg/dl (8.5-10.1); CREATININE 1.8 mg/dl (0.60-1.40); MAGNESIUM 2.5 mg/dl (1.8-2.4); POTASSIUM 5.8 mmol/L (3.5-5.1)
[2017-03-31] MEDS: PIPERACILL/TAZOBAC IV 4.5 GM in DEXTROSE 5% 100ML 100 ML IV SCH ×3 (04:00→19:45)
[2017-03-31 04:28] LABS: BASO % 0.1 %; BASO ABS # 0.02 K/uL (0-0.2); COMPLETE YES; IG% 0.5 %; LYMPH % 4.9 %; LYMPH ABS # 1.11 K/uL (1.2-3.4); MONO % 2.2 %; NEUT % 92.3 %
[2017-03-31] MEDS ORDERED: FUROSEMIDE 40 MG/4 ML VIAL ONE (04:28)
[2017-03-31 04:37] LABS: ISTAT ALLEN TEST Pass; ISTAT ARTERIAL BLOOD GAS HCO3 24 meq/L (19-24); ISTAT ARTERIAL BLOOD GAS PCO2 59 mmHg (35-46); ISTAT ARTERIAL BLOOD GAS PO2 64 mmHg (80-95); ISTAT ARTERIAL BLOOD GAS pH 7.22 (7.35-7.45); ISTAT CARBON DIOXIDE 26 mEq/l (24-31); ISTAT DELIVERY SYSTEM Ventilator; ISTAT FIO2 70 %; ISTAT PEEP 5; ISTAT RATE 20; ISTAT SITE R Radial; Vt 540
[2017-03-31] MEDS ORDERED: SOD CHLOR 14.6% 2.5MEQ/ML 38.5 MEQ, SODIUM BICARBONATE 8.4% INJ 150 MEQ in STERILE WATE... IV SCH (04:45)
[2017-03-31] MEDS ORDERED: FUROSEMIDE 40 MG/4 ML VIAL IV STA (04:59)
--- NOTE | 2017-03-31 06:31 | DIAGNOSTIC IMAGING REPORT ---
CHEST ONE VIEW PORTABLE HISTORY: 51 years-old Male hypoxia acute hypoxia. Follow-up exam. COMPARISON: chest radiograph 03/31/2017 at 12:08 AM TECHNIQUE: Semiupright AP view of the chest FINDINGS: Endotracheal tube terminates 5.0 cm superior to the mary. Left internal jugular central venous catheter is in stable positioning terminating in the SVC brachiocephalic confluence. Cardiac silhouette is again moderately enlarged. Prior median sternotomy. There is no pneumothorax. Mild vascular congestion is seen with background interstitial coarsening and perihilar and bibasilar airspace opacities. Small bilateral pleural effusions are present, right greater than left. There is mildly improved aeration of lung bases from comparison. The bones are grossly intact. IMPRESSION: 1. Stable positioning of life support apparatus. 2. Cardiomegaly with mildly improved pulmonary edema pattern and persistent small bilateral pleural effusions. The above report was generated using voice recognition software. It may contain grammatical, syntax or spelling errors. Electronically signed by: Daniel Bañuelos M.D. 03/31/2017 6:29 AM Dictated Date/Time: 03/31/2017 6:26 AM
--- NOTE | 2017-03-31 06:38 | DIAGNOSTIC IMAGING REPORT ---
CHEST ONE VIEW PORTABLE HISTORY: 51 years-old Male line placement placement of left internal jugular central venous catheter COMPARISON: Chest radiograph 03/30/2017 TECHNIQUE: Portable upright AP view of the chest FINDINGS: The endotracheal tube terminates at the midthoracic trachea, well above the level of the mary. Left internal jugular central venous catheter has been placed with distal tip terminating near the brachiocephalic SVC junction. No postprocedural pneumothorax is identified. Prior median sternotomy. Moderate cardiomegaly is again seen. Small bilateral pleural effusions persist along with pulmonary vascular congestion, background interstitial coarsening and patchy bibasilar and perihilar alveolar opacities. There is decreased aeration of the lung bases. Bones are grossly intact. IMPRESSION: 1. Placement of a left internal jugular central venous catheter with distal tip terminating near the confluence of the left brachiocephalic vein and SVC. No postprocedural pneumothorax. 2. Stable position of endotracheal tube. 3. Cardiomegaly with persistent pulmonary edema pattern, small bilateral pleural effusions and bibasilar opacities with decreased aeration of the lung bases. The above report was generated using voice recognition software. It may contain grammatical, syntax or spelling errors. Electronically signed by: Daniel Bañuelos M.D. 03/31/2017 6:36 AM Dictated Date/Time: 03/31/2017 6:34 AM
[2017-03-31] MEDS: METHYLPREDNISOLONE IV 60 MG in SYRINGE 0 ML IV SCH ×3 (06:41→21:30)
--- NOTE | 2017-03-31 06:41 | DIAGNOSTIC IMAGING REPORT ---
KUB HISTORY: Status post placement of enteric tube. og tube placement COMPARISON: Chest radiograph 03/30/2017 FINDINGS: The bowel gas pattern is non-obstructive. Enteric tube has been placed with distal tip terminating in the left upper abdomen in the region of the mid gastric body. Degenerative changes of the spine and hips are noted. There is no organomegaly. No renal calculi. No ureteral calculi. No pneumoperitoneum or pneumatosis. No fracture. IMPRESSION: 1. Enteric tube terminates in the left upper abdomen in the region of the mid gastric body. 2. Nonobstructive bowel gas pattern. Electronically signed by: Daniel Bañuelos M.D. 03/31/2017 6:40 AM Dictated Date/Time: 03/31/2017 6:38 AM
[2017-03-31] MEDS ORDERED: CALCIUM GLUCONATE 10% 1,000 MG in SODIUM CHLORIDE 0.9% 50ML 50 ML IV STA (06:53)
[2017-03-31] MEDS: BUDESONIDE/FORMOTEROL FUMARATE 80/4.5 60 PUFFS/INHALER INH SCH ×2 (07:33→20:23)
[2017-03-31 08:00] LABS: HEMATOCRIT 50.5 % (42-52); MEAN CELL VOLUME 92.8 fL (80-100); MEAN CORPUSCULAR HEMOGLOBIN 31.4 pg (25-34); MEAN CORPUSCULAR HGB CONC 33.9 g/dl (32-36); MEAN PLATELET VOLUME 9.4 fL (7.4-10.4); PLATELET COUNT 268 K/uL (130-400); RED BLOOD COUNT 5.44 M/uL (4.7-6.1); WHITE BLOOD COUNT 16.86 K/uL (4.8-10.8)
[2017-03-31] MEDS ORDERED: BUDESONIDE 0.5 MG/2 ML VIAL (PULMICORT) INH SCH (08:00)
[2017-03-31] MEDS ORDERED: ARFORMOTEROL TART 15MCG/2ML VIAL INH SCH (08:00)
[2017-03-31 08:11] LABS: ESTIMATED AVERAGE GLUCOSE 117 mg/dl; HA1C FLAG Normal (Normal)
[2017-03-31 08:20] LABS: PARTIAL THROMBOPLASTIN RATIO 2.2
[2017-03-31 08:34] LABS: BUN/CREATININE RATIO 10.5 (10-20); CALCIUM 7.9 mg/dl (8.5-10.1); CREATININE 1.9 mg/dl (0.60-1.40); POTASSIUM 5.2 mmol/L (3.5-5.1)
[2017-03-31 08:37] LABS: CHOLESTEROL/HDL RATIO 4.9
[2017-03-31] MEDS: DOXYCYCLINE IV 100 MG in DEXTROSE 5% 100ML 100 ML IV SCH ×2 (08:57→20:21)
[2017-03-31] MEDS ORDERED: VANCOMYCIN INJ 1,000 MG in SODIUM CHLORIDE 0.9% 250ML 250 ML IV SCH (09:00)
[2017-03-31] MEDS ORDERED: PERFLUTREN LIPID MICROSPHERE (DEFINITY) IV ONE (09:17)
[2017-03-31] MEDS: FENTANYL 1250MCG/250ML NSS 250 ML IV PRN (09:25)
[2017-03-31] MEDS: PROPOFOL IV EMULSION 10 MG/ML 100 ML VIAL IV PRN ×2 (09:25→16:20)
--- NOTE | 2017-03-31 09:45 | ECHOCARDIOGRAM REPORT ---
*NOTICE TO RECEIVING [employer] This information is strictly Confidential and protected under [place] law. [place] law prohibits you from making any further disclosure of this information unless further disclosure is expressly permitted by the written consent of the person to whom it pertains or is authorized by law. A general authorization for the release of medical or other information is not sufficient for this purpose. Hospital accepts no responsibility if the information is made available to any other person, INCLUDING THE PATIENT. Interpretation Summary * Name: SCOT AMES JR Study Date: 03/31/2017 08:51 AM BP: 87/60 mmHg * [facility]\1 HR: 106 * : 1965 (M/d/yyyy) Gender: Male Height: 71 in * Age: 51 yrs Ethnicity: CA Weight: 264 lb * Ordering Physician: Christopher. Perez MD * Performed By: Meghan Tapia * * Reason For Study: CARDIOGENIC SHOCK * BSA: 2.4 m2 * -- Conclusions -- * The left ventricle is mildly dilated. * Left ventricular systolic function is moderately reduced. * Diastolic function appears restrictive * There are regional wall motion abnormalities as specified. * The right ventricular systolic function is reduced as assessed by tricuspid annular plane systolic excursion (TAPSE) (TAPSE <1.6 cm). * COmpared to an echocardiogram from 2010, there does not appear to be much mitral regurgitation. Procedure Details * A complete two-dimensional transthoracic echocardiogram was performed (2D, M-mode, Doppler and color flow Doppler). * The study was technically difficult. * There were technical limitations due to patient'ssupine positioning while on mechanical ventilation * A contrast injection of Definity was performed to improve assessment of LV function. * Contrast was injected into an intravenous site in the central line. * One vial of Definity ultrasound contrast was diluted in normal saline to a total volume of 10 ml. A total of '4' ml of solution was administered during imaging. * Lot # [id number] of Definity utilized for procedure. * Expiration date 05/12. * The attending nurse who injected the contrast agent was WINSTON BOWENS RN. Left Ventricle * The left ventricle is mildly dilated. * There is normal left ventricular wall thickness. * Ejection Fraction = 35-40%. * Left ventricular systolic function is moderately reduced. * Diastolic function appears restrictive * There are regional wall motion abnormalities as specified. * Septal wall moves normally, but there is moderate to severe hypokinesis of the other duarte Right Ventricle * The right ventricle is not well visualized. * The right ventricular systolic function is reduced as assessed by tricuspid annular plane systolic excursion (TAPSE) (TAPSE <1.6 cm). Mitral Valve * The mitral valve is grossly normal. * Significant mitral regurgitation is absent. Tricuspid Valve * The tricuspid valve is not well visualized. Aortic Valve * The aortic valve is not well visualized. * There is no significant aortic regurgitation. Pericardium/Pleural * There is no pericardial effusion. MMode 2D Measurements and Calculations IVSd 1.3 cm IVSs 1.3 cm LVIDd 5.8 cm LVIDs 4.7 cm LVPWd 1.1 cm LVPWs 2.2 cm IVS/LVPW 1.2 FS 18.7 % EDV(Teich) 164.7 ml ESV(Teich) 101.9 ml EF(Teich) 38.2 % EDV(cubed) 192.3 ml ESV(cubed) 103.2 ml EF(cubed) 46.4 % % IVS thick 1.9 % % LVPW thick 107.6 % LV mass(C)d 288.9 grams LV mass(C)dI 121.8 grams/m\S\2 LV mass(C)s 377.8 grams LV mass(C)sI 159.2 grams/m\S\2 CO(Teich) 6.7 l/min CI(Teich) 2.8 l/min/m\S\2 SV(Teich) 62.9 ml SI(Teich) 26.5 ml/m\S\2 CO(cubed) 9.5 l/min CI(cubed) 4.0 l/min/m\S\2 SV(cubed) 89.1 ml SI(cubed) 37.6 ml/m\S\2 EPSS 2.9 cm asc Aorta Diam 2.7 cm LVOT diam 1.9 cm LVOT area 2.9 cm\S\2 LVAd ap4 38.1 cm\S\2 LVLd ap4 8.3 cm EDV(MOD-sp4) 141.0 ml LVAs ap4 30.5 cm\S\2 LVLs ap4 8.6 cm ESV(MOD-sp4) 89.5 ml EF(MOD-sp4) 36.5 % LVAd ap2 26.9 cm\S\2 LVLd ap2 8.4 cm EDV(MOD-sp2) 68.4 ml LVAs ap2 20.3 cm\S\2 LVLs ap2 7.8 cm ESV(MOD-sp2) 43.4 ml EF(MOD-sp2) 36.5 % CO(MOD-sp4) 5.5 l/min CI(MOD-sp4) 2.3 l/min/m\S\2 SV(MOD-sp4) 51.5 ml SI(MOD-sp4) 21.7 ml/m\S\2 CO(MOD-sp2) 2.7 l/min CI(MOD-sp2) 1.1 l/min/m\S\2 SV(MOD-sp2) 25.0 ml SI(MOD-sp2) 10.5 ml/m\S\2 Doppler Measurements and Calculations MV E max paola 93.2 cm/sec MV dec time 0.12 sec Ao V2 max 81.4 cm/sec Ao max PG 2.7 mmHg Ao max PG (full) 1.9 mmHg KALLI(V,A) 1.6 cm\S\2 KALLI(V,D) 1.6 cm\S\2 LV V1 max PG 0.78 mmHg LV V1 max 44.0 cm/sec MR max paola 308.4 cm/sec MR max PG 38.2 mmHg PA V2 max 36.1 cm/sec PA max PG 0.52 mmHg
--- NOTE | 2017-03-31 10:56 | Pharmacy Progress Note ---
Pharmacy Antibiotic Consult Date of Service: Mar 31, 2017. Pharmacy Dosing Scope Pharmacy is consulted to initiate Vancomycin/Zosyn IV dosing therapy, order appropriate labs and adjust drug dose/frequency. Subjective The patient is a 51 year old male admitted on Mar 30, 2017 at 21:02. Objective Height (Feet): 5 Height (Inches): 11.00 Weight (Kilograms): 119.900 Lab Results (24hrs): Test 03/30/17 17:20 03/30/17 17:29 03/30/17 17:42 03/30/17 17:47 Bedside Blood Urea Nitrogen 19 mg/dl (7-18) Bedside Creatinine 1.0 mg/dl (0.6-1.3) White Blood Count 18.76 K/uL (4.8-10.8) Neutrophils # (Auto) 13.31 K/uL (1.4-6.5) Urine Color DK YELLOW Urine Appearance CLEAR (CLEAR) Urine pH 5.0 (4.5-7.5) Urine Specific Carbon 1.028 (1.000-1.030) Urine Protein 2+ (NEG) Urine Glucose (UA) NEG (NEG) Urine Ketones TRACE (NEG) Urine Occult Blood TRACE (NEG) Urine Nitrite NEG (NEG) Urine Bilirubin NEG (NEG) Urine Urobilinogen NEG (NEG) Urine Leukocyte Esterase NEG (NEG) Urine WBC (Auto) 1-5 /hpf (0-5) Urine RBC (Auto) 0-4 /hpf (0-4) Urine Hyaline Casts (Auto) 10-30 /lpf (0-5) Urine Epithelial Cells (Auto) 20-30 /lpf (0-5) Urine Bacteria (Auto) NEG (NEG) Urine Pathogenic Casts 0-3 GRANULAR CASTS /lpf (0) Bedside Lactic Acid Venous 3.04 mmol/L (0.90-1.70) Arterial Blood pH 7.16 (7.35-7.45) Arterial Blood Partial Pressure CO2 80 mmHg (35-46) Arterial Blood Partial Pressure O2 245 mm/Hg (80-95) Arterial Blood HCO3 28 mmol/L (19-24) Arterial Blood Oxygen Saturation 99.6 % (90-95) Arterial Blood Base Excess -3.5 mEq/L (-9-1.8) Arterial Blood Gas Delivery 100% Anjel Test POS (POS) Total Creatine Kinase 323 U/L (39-308) Procalcitonin 0.09 ng/ml (0-0.5) Blood Gas Minute Ventilation 11.3 Test 03/30/17 22:49 03/31/17 00:59 03/31/17 03:02 03/31/17 04:26 Bedside Glucose 132 mg/dl (70-99) Blood Gas Sample Site R Radial R Radial Bedside Blood Gas pH (LAB) 7.27 (7.35-7.45) 7.22 (7.35-7.45) Bedside Blood Gas pCO2 (LAB) 61 mmHg (35-46) 59 mmHg (35-46) Bedside Blood Gas pO2 (LAB) 75 mmHg (80-95) 64 mmHg (80-95) Bedside Blood Gas HCO3 (LAB) 28 meq/L (19-24) 24 meq/L (19-24) Bedside Blood Gas Total CO2 30 mEq/l (24-31) 26 mEq/l (24-31) Bedside Blood Gas Base Excess (LAB) 1.0 meq/L (-9-1.8) -4.0 meq/L (-9-1.8) Bedside Blood Gas O2 Saturation 92.0 % (90-95) 88.0 % (90-95) Anjel Test Pass Pass Oxygen Delivery Device Ventilator Ventilator Bedside Oxygen Rate (breaths/min) 20 20 Bedside FiO2 70 % 70 % Blood Gas Tidal Volume 540 540 Blood Gas PEEP 5 5 White Blood Count 22.57 K/uL (4.8-10.8) Neutrophils # (Auto) 20.81 K/uL (1.4-6.5) Blood Urea Nitrogen 17 mg/dl (7-18) Creatinine 1.80 mg/dl (0.60-1.40) Est Creatinine Clear Calc Drug Dose 62.9 ml/min BUN/Creatinine Ratio 9.6 (10-20) Lactic Acid Level 3.0 mmol/L (0.4-2.0) Troponin I 8.300 ng/ml (0-0.045) White Blood Count 16.86 K/uL (4.8-10.8) Blood Urea Nitrogen 20 mg/dl (7-18) Creatinine 1.90 mg/dl (0.60-1.40) Est Creatinine Clear Calc Drug Dose 59.2 ml/min BUN/Creatinine Ratio 10.5 (10-20) Micro Results: Item Value Date Time Gram Stain Received 03/31/17 0910 Sputum Trach. Tube Suction Pending MRSA DNA Surveillance Screen - Final Complete 03/30/17 1940 Nasal Specimen Negative for MRSA by DNA Probe Blood Culture Received 03/30/17 1827 Blood Pending Blood Culture Received 03/30/17 1810 Blood Pending Assessment & Plan ASSESSMENT: * Mr Wiley is a 51yo patient admitted w/ SOB/chest tightness. CXR in ED concerning for pulmonary edema. * PMH includes CAD (s/p quadruple bypass), SD, asthma, COPD, HTN * WBC 23, lactic acid 3.0, patient has been febrile since admission, MRSA swab negative * Pt w/ KAI, SCr 1.3 --> 1.9 this am * Pt mechanically ventilated at this time. PLAN: Vancomycin * Loading dose: Vanc 2750 mg IV X 1 dose then: * Vanc 1750 mg IV every 16 hours. * Estimated p'kinetic parameters (based on CrCl ~59mL/min, SCr 1.9): * Ke ~ 0.053/hr t 1/2 ~ 13hr * Goal trough level estimate: between 15 - 20 mcg/mL for respiratory infx * Will evaluate a trough level prior to the 3rd or 4th maintenance dose. Expect that dose will need to be adjusted as renal function is not stable currently. Will follow closely. Zosyn * Zosyn 4.5gm IV x1 dose over 30 min, then * Zosyn 4.5gm IV q8h extended 4-hr infusion * More aggressive regimen is suggested if: critically ill, obese with BMI 35 or above, cystic fibrosis, KEN > 16 g/mL Doxycycline 100mg IV BID (selected in the setting of prolonged QTc, 528ms --> 613ms --> 526ms) Pharmacy will continue to follow and will adjust dose/frequency as necessary. Thank you
--- NOTE | 2017-03-31 11:09 | Critical Care Consultation ---
Critical Care Consultation Date of Consultation: Mar 30, 2017 Attending Physician: Jorden Pizano M.D. Reason for Consultation: respiratory failure NSTEMI shock History of Present Illness This note is backdateed and it refers to events on 03/30/2017 starting 22:00 This is a 51 yo male known to have asthma (PFT In 2006 shows moderate reversible obstruction), CAD h/o quadruple Bypass in 2010, and psoriasis per his son. The patient is also a smoker. He was by himself when he developed SOB and called the ambulance. On arrival to the ED he was in respiratory distress and refractory to BIPAP. He was then intubated with a size 8 ET tube. The patient was in hypercapneic to 89 with pH 7.06. Volume control was used. He also had cardiology evaluation in ED and they recommended heparin drip for potential NSTEMI. He underwent an echocardiogram and it showed EF of 35-40% with diastolic restriction as well and decreased RV function. In addition he was tachycardiac up to 160, a trial of amiodarone and then electric shock controlled him down into the 120s. Dr Crowell suspected possible A flutter. The patient was transferred up to ICU at about 940pm. I saw him at 10 pm and called the listed next of kin Swati Loera. We got no answer. I left a voice mail message and proceeded with a R IJ CVC under US guidance after obtaining administrative consent given the patient was in shock, hyperglycemic acidotic on MV needing sedation heparin and insulin drips as well as the antibiotics. I placed a TL IJ CVC .Patient was paralysed with nimbex. Ipratropium/ levalbuterol Symbicort IV solumedrol were given. Sugar was controlled to 135 from the mid 200s and insulin stopped. I held the bicarbonate drip since his pH climbed up to 7.21 and CO2 was down in to the 60s from 89. Patient was very combative with peak airway pressures in the 46-50 range. After nimbex it was down to 35. With that I was able to decreae his RR to 20. TV [id number] Ms Loera called back and contacted his family here in [facility].. His urine tox screen resulted as negative Daughter Diana [phone] Son Ravin [phone] ex Amy a retired [facility] [place] nurse [phone] Father in [place] [phone] Family was contacted and came to bedside within 30 minutes. They were updated and question answered. Patient is full code. Overnight hospitalist restarted Bicarb drip and increased RR 26. pH this am down to 7.22 troponin is up to 8.3 Heparin drip on board. asa will be added. This am he remains stable on 0.06 mcg levophed and nimbex. Past Medical/Surgical History Family History non contributory at this point. Social History Smoking Status: Current Every Day Smoker Drug Use: none Occupation Status: employed Allergies Coded Allergies: No Known Allergies (Verified , 05/23/11) Home Medications Scheduled Aspirin (Aspirin Low Strength), 324 MG NJ DAILY Atorvastatin (Atorvastatin Calcium), 80 MG NJ QAM Budesonide/Formoterol Fumarate (Symbicort 80-4.5 Mcg/Act), 2 PUFFS INH BIDR Insulin Aspart (Novolog Flexpen), 0 UNITS SC Q4H Piperacillin/Tazobactam Sod (Zosyn 4-0.5 gm), 4.5 MG IV Q6H Current Inpatient Medications Current Inpatient Medications Medications (Trade) Dose Ordered Sig/Wyatt Route Start Time Stop Time Status Last Admin Dose Admin Norepinephrine Bitartrate 8 mg/ Dextrose 508 ml @ 0 mls/hr Q0M PRN IV 03/30/17 20:51 04/29/17 20:50 03/30/17 21:08 47.6 MLS/HR Midazolam HCl 250 ml @ 0 mls/hr Q0M PRN IV 03/30/17 20:56 04/29/17 20:55 03/30/17 22:06 2 MLS/HR Piperacillin Sod/ Tazobactam Sod 4.5 gm/Dextrose 120 ml @ 28.75 mls/ hr Q8H IV 03/31/17 04:00 04/10/17 03:59 03/31/17 04:00 28.75 MLS/HR Methylprednisolone Sodium Succinate 60 mg/Syringe 0.96 ml @ 1.5 mls/min Q8H IV 03/30/17 22:00 04/29/17 21:59 03/31/17 06:41 1.5 MLS/MIN Glucose (Glucose 40% Gel) UD PRN PO 03/30/17 22:15 10/5/17 22:14 Glucose (Glucose Chew Tab) 1 tabs UD PRN PO 03/30/17 22:15 04/29/17 22:14 Dextrose (Dextrose 50% 50ML Syringe) 50 ml UD PRN IV 03/30/17 22:15 04/29/17 22:14 Glucagon (Glucagon Inj) 1 mg UD PRN SQ 03/30/17 22:15 04/29/17 22:14 Propofol (Diprivan Iv Emulsion 100ml Vial) 1 dose UD PRN IV 03/30/17 22:13 04/02/17 22:12 03/31/17 09:25 1 DOSE Vancomycin HCl (Consult) 1 ea UD PRN N/A 03/30/17 22:15 04/29/17 22:14 Piperacillin Sod/ Tazobactam Sod (Consult) 1 ea UD PRN N/A 03/30/17 22:15 04/29/17 22:14 Ipratropium [place] (Atrovent Hfa Inhaler) 4 puffs Q6R INH 03/31/17 03:00 04/30/17 02:59 03/31/17 07:33 4 PUFFS Levalbuterol (Xopenex Hfa Inhaler) 2 puffs Q6R INH 03/31/17 03:00 04/30/17 02:59 03/31/17 07:33 2 PUFFS Budesonide/ Formoterol Fumarate (Symbicort 80/ 4.5 Inh) 2 puffs BIDR INH 03/31/17 08:00 04/30/17 07:59 03/31/17 07:33 2 PUFFS Cisatracurium Besylate 40 mg/ Sodium Chloride 100 ml @ 0 mls/hr Q0M PRN IV 03/30/17 23:45 04/29/17 23:44 03/31/17 06:42 0.5 MLS/HR Doxycycline Hyclate 100 mg/ Dextrose 110 ml @ 50 mls/hr BID IV 03/31/17 09:00 04/07/17 08:59 03/31/17 08:57 50 MLS/HR Heparin Sodium/ Dextrose 500 ml @ 34 mls/hr [id number] PRN IV 03/31/17 01:30 04/30/17 01:29 03/31/17 01:40 34 MLS/HR Sodium Chloride 38.5 meq/Sodium Bicarbonate 150 meq/Sterile Water 1,150 ml @ 150 mls/hr [id number] IV 03/31/17 04:45 04/30/17 04:44 03/31/17 04:59 150 MLS/HR Pantoprazole Sodium 40 mg/ Syringe 10 ml @ 5 mls/min DAILY@11 IV 03/31/17 11:00 04/30/17 10:59 Fentanyl Citrate 250 ml @ 0 mls/hr Q0M PRN IV 03/31/17 08:30 04/14/17 08:29 03/31/17 09:25 5 MLS/HR Review of Systems not able to obtain from the patient. Physical Exam Date Time Temp Pulse Resp B/P (MAP) Pulse Ox O2 Delivery O2 Flow Rate FiO2 03/31/17 07:33 70 03/31/17 07:16 38.4 106 4 87/60 (69) 97 03/31/17 07:01 38.4 105 0 92/60 (71) 97 03/31/17 06:46 38.4 105 26 92/62 (72) 97 03/31/17 06:31 38.3 105 26 88/63 (71) 96 03/31/17 06:16 38.4 106 26 92/62 (72) 96 03/31/17 06:01 38.3 106 26 92/64 (73) 95 03/31/17 05:46 38.4 107 26 90/58 (69) 95 03/31/17 05:39 70 03/31/17 05:31 38.4 107 26 93/62 (72) 95 03/31/17 05:16 38.4 106 26 90/56 (67) 95 03/31/17 05:01 38.5 106 26 81/58 (66) 94 03/31/17 04:47 99 25 75/51 (59) 94 03/31/17 04:32 105 20 85/64 (71) 91 03/31/17 04:16 114 20 77/51 (60) 91 03/31/17 04:11 91 Mechanical Ventilator 70 03/31/17 04:02 111 20 82/62 (69) 91 03/31/17 04:02 111 20 82/62 (69) 91 03/31/17 03:47 112 20 80/49 (59) 91 03/31/17 03:34 113 20 86/53 (64) 91 03/31/17 03:31 113 20 78/54 (62) 91 03/31/17 03:17 115 20 81/56 (64) 92 03/31/17 03:01 110 20 88/53 (65) 93 03/31/17 02:56 70 03/31/17 02:46 119 15 78/65 (69) 94 03/31/17 02:32 114 20 75/57 (63) 92 03/31/17 02:17 117 20 99/52 (68) 93 03/31/17 02:11 115 20 75/61 (66) 93 03/31/17 02:01 115 20 75/61 (66) 92 03/31/17 01:01 119 20 77/63 (68) 93 03/31/17 00:46 70 03/31/17 00:46 119 20 82/59 (67) 92 03/31/17 00:32 121 24 88/62 (71) 97 03/31/17 00:26 121 24 100/54 (69) 96 03/31/17 00:21 122 24 86/63 (71) 92 03/31/17 00:16 125 20 110/66 (81) 90 03/31/17 00:13 92 Mechanical Ventilator 70 03/31/17 00:01 127 35 108/85 (93) 94 03/30/17 23:48 130 37 100/60 (73) 91 03/30/17 23:31 132 34 110/61 (77) 92 03/30/17 23:16 129 31 112/70 (84) 93 03/30/17 23:01 129 33 113/66 (82) 93 03/30/17 22:46 129 33 116/73 (87) 93 03/30/17 22:31 124 30 101/72 (82) 98 03/30/17 22:17 122 30 88/70 (76) 96 03/30/17 22:02 37.6 124 24 71/48 96 Mechanical Ventilator 70 03/30/17 22:02 119 29 104/61 (75) 100 03/30/17 21:40 70 03/30/17 21:10 115 24 93/57 100 Mechanical Ventilator 03/30/17 20:55 70 9/5/17 20:45 113 24 61/50 95 Room Air 03/30/17 20:16 104/73 03/30/17 20:07 97/76 03/30/17 20:06 117 22 97 03/30/17 20:01 97/76 03/30/17 19:51 121 22 98 03/30/17 19:46 105/71 03/30/17 19:45 126 96 03/30/17 19:36 102/69 03/30/17 19:31 92/80 03/30/17 19:30 130 96 03/30/17 19:16 116/85 03/30/17 19:15 133 94 03/30/17 19:01 113/80 03/30/17 19:00 132 22 97 03/30/17 18:57 136 22 121/78 97 Mechanical Ventilator 100 03/30/17 18:36 108/77 03/30/17 18:35 147 22 98 03/30/17 18:31 111/90 03/30/17 18:30 89 Non-Rebreather 15.0 03/30/17 18:27 132/108 03/30/17 18:25 159 22 98 03/30/17 18:21 155/110 03/30/17 18:16 166/101 03/30/17 18:15 170 22 98 03/30/17 18:11 161/119 03/30/17 18:06 146/125 03/30/17 18:05 177 22 97 03/30/17 18:00 178 115/119 96 Mechanical Ventilator 100 03/30/17 17:50 177 170/112 96 Mechanical Ventilator 100 03/30/17 17:40 165 155/105 95 Mechanical Ventilator 100 03/30/17 17:35 164 142/99 94 Mechanical Ventilator 100 03/30/17 17:35 100 03/30/17 17:23 156 03/30/17 17:23 191 86/62 87 Ambu-Bag 03/30/17 17:17 166 105/65 94 Non-Rebreather 15.0 03/30/17 17:11 176 03/30/17 17:00 37.4 169 40 115/91 89 Non-Rebreather 15.0 03/30/17 17:00 Non-Rebreather 15.0 General Appearance: severe distress, other (got intubated paralysed and now he is in no distress on propofol versed and fentanyl) Head: normocephalic, atraumatic Eyes: PERRLA, no discharge ENT: normal ear exam, other (short thick obese neck no JVD could be assessed due to body habitus. no LN palpable) Neck: normal range of motion, no stridor Respiratory: other (decreased breath sounds and prolonged expiratory phase which is improving gradually) Cardiovasular: other (tachycardiac s1 s2 no murmurs) Abdomen: non tender, hypoactive bowel sounds (morbidly centrally obese) Back: normal inspection Upper Extremities: no edema Lower Extremities: no edema Neuro: other (sedated paralysed intubated) Laboratory Results Last 24 Hours Test 03/30/17 17:20 03/30/17 17:29 03/30/17 17:42 03/30/17 17:47 Bedside Hemoglobin 19.7 g/dl 18.4 g/dl Bedside Hematocrit 58 % 54 % Bedside Sodium 137 mEq/L 135 mEq/L Bedside Potassium 6.0 mEq/L 4.3 mEq/L Bedside Chloride 105 mEq/L Bedside Total CO2 23 mEq/l Anion Gap 16.0 mmol/L 9.0 mmol/L Bedside Blood Urea Nitrogen 19 mg/dl Bedside Creatinine 1.0 mg/dl Bedside Glucose (other) 222 mg/dl Bedside Ionized Calcium (Bautista) 1.06 mmol/l White Blood Count 18.76 K/uL Red Blood Count 5.61 M/uL Hemoglobin 17.5 g/dL Hematocrit 52.8 % Mean Corpuscular Volume 94.1 fL Mean Corpuscular Hemoglobin 31.2 pg Mean Corpuscular Hemoglobin Concent 33.1 g/dl Platelet Count 303 K/uL Mean Platelet Volume 9.4 fL Neutrophils (%) (Auto) 71.0 % Lymphocytes (%) (Auto) 20.6 % Monocytes (%) (Auto) 5.6 % Eosinophils (%) (Auto) 1.7 % Basophils (%) (Auto) 0.5 % Neutrophils # (Auto) 13.31 K/uL Lymphocytes # (Auto) 3.87 K/uL Monocytes # (Auto) 1.05 K/uL Eosinophils # (Auto) 0.32 K/uL Basophils # (Auto) 0.09 K/uL RDW Standard Deviation 46.9 fL RDW Coefficient of Variation 13.6 % Immature Granulocyte % (Auto) 0.6 % Immature Granulocyte # (Auto) 0.12 K/uL Prothrombin Time 10.7 SECONDS Prothromb Time International Ratio 1.0 Activated Partial Thromboplast Time 25.2 SECONDS Partial Thromboplastin Ratio 1.0 Venous Blood pH 7.06 Venous Blood Partial Pressure CO2 100 mmHg Venous Blood Partial Pressure O2 46 mmHg Venous Blood HCO3 28 mmol/L Venous Blood Oxygen Saturation 65.7 % Venous Blood Base Excess -5.9 mEq/L Sodium Level 137 mmol/L Potassium Level mmol/L Chloride Level 102 mmol/L Carbon Dioxide Level 26 mmol/L Blood Urea Nitrogen 13 mg/dl Creatinine 1.30 mg/dl Est Creatinine Clear Calc Drug Dose 89.2 ml/min Estimated GFR () 72.2 Estimated GFR (Non- 62.3 BUN/Creatinine Ratio 10.2 Random Glucose 255 mg/dl Calcium Level 8.2 mg/dl Total Bilirubin 0.3 mg/dl Aspartate Amino Transf (AST/SGOT) U/L Alanine Aminotransferase (ALT/SGPT) 29 U/L Alkaline Phosphatase 112 U/L Total Creatine Kinase U/L Creatine Kinase MB 7.4 ng/ml Creatine Kinase MB Ratio Troponin I 0.515 ng/ml Pro-B-Type Natriuretic Peptide 2515 pg/ml Total Protein 7.3 gm/dl Albumin 3.3 gm/dl Globulin 4.0 gm/dl Albumin/Globulin Ratio 0.8 Chemistry Specimen Hemolysis Bedside Blood Gas pH (LAB) 7.14 Bedside Blood Gas pCO2 (LAB) 78 mmHg Bedside Blood Gas pO2 (LAB) 113 mmHg Bedside Blood Gas HCO3 (LAB) 26 meq/L Bedside Blood Gas Total CO2 29 mEq/l Bedside Blood Gas Base Excess (LAB) -3.0 meq/L Bedside Blood Gas O2 Saturation 96.0 % Urine Color DK YELLOW Urine Appearance CLEAR Urine pH 5.0 Urine Specific [place] 1.028 Urine Protein 2+ Urine Glucose (UA) NEG Urine Ketones TRACE Urine Occult Blood TRACE Urine Nitrite NEG Urine Bilirubin NEG Urine Urobilinogen NEG Urine Leukocyte Esterase NEG Urine WBC (Auto) 1-5 /hpf Urine RBC (Auto) 0-4 /hpf Urine Hyaline Casts (Auto) 10-30 /lpf Urine Epithelial Cells (Auto) 20-30 /lpf Urine Bacteria (Auto) NEG Urine Pathogenic Casts 0-3 GRANULAR CASTS /lpf Urine Opiates Screen NEG Urine Methadone, Qualitative NEG Urine Barbiturates NEG Urine Phencyclidine (PCP) Level NEG Ur Amphetamine/Methamphetamine NEG MDMA (Ecstasy) Screen NEG Urine Benzodiazepines Screen NEG Urine Cocaine Metabolite NEG Urine Marijuana (THC) NEG Test 03/30/17 18:19 03/30/17 19:18 03/30/17 19:19 03/30/17 22:29 Bedside Lactic Acid Venous 3.04 mmol/L Arterial Blood pH 7.16 Arterial Blood Partial Pressure CO2 80 mmHg Arterial Blood Partial Pressure O2 245 mm/Hg Arterial Blood HCO3 28 mmol/L Arterial Blood Oxygen Saturation 99.6 % Arterial Blood Base Excess -3.5 mEq/L Arterial Blood Gas Delivery 100% Anjel Test POS Pass Potassium Level 4.6 mmol/L Aspartate Amino Transf (AST/SGOT) 48 U/L Total Creatine Kinase 323 U/L Procalcitonin 0.09 ng/ml Chemistry Specimen Hemolysis Blood Gas Sample Site R Radial Bedside Blood Gas pH (LAB) 7.22 Bedside Blood Gas pCO2 (LAB) 69 mmHg Bedside Blood Gas pO2 (LAB) 87 mmHg Bedside Blood Gas HCO3 (LAB) 28 meq/L Bedside Blood Gas Total CO2 30 mEq/l Bedside Blood Gas Base Excess (LAB) 0.0 meq/L Bedside Blood Gas O2 Saturation 94.0 % Oxygen Delivery Device Ventilator Bedside Oxygen Rate (breaths/min) 24 Blood Gas Minute Ventilation 11.3 Bedside FiO2 70 % Blood Gas Tidal Volume 600 Blood Gas PEEP 5 Test 03/30/17 22:49 03/31/17 00:59 03/31/17 03:02 03/31/17 04:26 Bedside Glucose 132 mg/dl Blood Gas Sample Site R Radial R Radial Bedside Blood Gas pH (LAB) 7.27 7.22 Bedside Blood Gas pCO2 (LAB) 61 mmHg 59 mmHg Bedside Blood Gas pO2 (LAB) 75 mmHg 64 mmHg Bedside Blood Gas HCO3 (LAB) 28 meq/L 24 meq/L Bedside Blood Gas Total CO2 30 mEq/l 26 mEq/l Bedside Blood Gas Base Excess (LAB) 1.0 meq/L -4.0 meq/L Bedside Blood Gas O2 Saturation 92.0 % 88.0 % Anjel Test Pass Pass Oxygen Delivery Device Ventilator Ventilator Bedside Oxygen Rate (breaths/min) 20 20 Bedside FiO2 70 % 70 % Blood Gas Tidal Volume 540 540 Blood Gas PEEP 5 5 White Blood Count 22.57 K/uL Red Blood Count 5.50 M/uL Hemoglobin 17.4 g/dL Hematocrit 51.3 % Mean Corpuscular Volume 93.3 fL Mean Corpuscular Hemoglobin 31.6 pg Mean Corpuscular Hemoglobin Concent 33.9 g/dl Platelet Count 292 K/uL Mean Platelet Volume 9.3 fL Neutrophils (%) (Auto) 92.3 % Lymphocytes (%) (Auto) 4.9 % Monocytes (%) (Auto) 2.2 % Eosinophils (%) (Auto) 0.0 % Basophils (%) (Auto) 0.1 % Neutrophils # (Auto) 20.81 K/uL Lymphocytes # (Auto) 1.11 K/uL Monocytes # (Auto) 0.50 K/uL Eosinophils # (Auto) 0.01 K/uL Basophils # (Auto) 0.02 K/uL RDW Standard Deviation 46.9 fL RDW Coefficient of Variation 13.7 % Immature Granulocyte % (Auto) 0.5 % Immature Granulocyte # (Auto) 0.12 K/uL Sodium Level 136 mmol/L Potassium Level 5.8 mmol/L Chloride Level 102 mmol/L Carbon Dioxide Level 29 mmol/L Anion Gap 5.0 mmol/L Blood Urea Nitrogen 17 mg/dl Creatinine 1.80 mg/dl Est Creatinine Clear Calc Drug Dose 62.9 ml/min Estimated GFR () 48.7 Estimated GFR (Non- 42.0 BUN/Creatinine Ratio 9.6 Random Glucose 214 mg/dl Lactic Acid Level 3.0 mmol/L Calcium Level 7.5 mg/dl Magnesium Level 2.5 mg/dl Total Bilirubin 0.7 mg/dl Aspartate Amino Transf (AST/SGOT) 119 U/L Alanine Aminotransferase (ALT/SGPT) 36 U/L Alkaline Phosphatase 97 U/L Troponin I 8.300 ng/ml Total Protein 7.1 gm/dl Albumin 3.5 gm/dl Globulin 3.6 gm/dl Albumin/Globulin Ratio 1.0 Lipase 58 U/L Test 03/31/17 07:47 03/31/17 07:50 Prothrombin Time 11.0 SECONDS Prothromb Time International Ratio 1.0 Activated Partial Thromboplast Time 56.5 SECONDS Partial Thromboplastin Ratio 2.2 White Blood Count 16.86 K/uL Red Blood Count 5.44 M/uL Hemoglobin 17.1 g/dL Hematocrit 50.5 % Mean Corpuscular Volume 92.8 fL Mean Corpuscular Hemoglobin 31.4 pg Mean Corpuscular Hemoglobin Concent 33.9 g/dl RDW Standard Deviation 47.1 fL RDW Coefficient of Variation 14.0 % Platelet Count 268 K/uL Mean Platelet Volume 9.4 fL Sodium Level 135 mmol/L Potassium Level 5.2 mmol/L Chloride Level 100 mmol/L Carbon Dioxide Level 28 mmol/L Anion Gap 7.0 mmol/L Blood Urea Nitrogen 20 mg/dl Creatinine 1.90 mg/dl Est Creatinine Clear Calc Drug Dose 59.2 ml/min Estimated GFR () 45.6 Estimated GFR (Non- 39.4 BUN/Creatinine Ratio 10.5 Random Glucose 204 mg/dl Estimated Average Glucose 117 mg/dl Hemoglobin A1c 5.7 % Calcium Level 7.9 mg/dl Total Bilirubin 0.6 mg/dl Aspartate Amino Transf (AST/SGOT) 201 U/L Alanine Aminotransferase (ALT/SGPT) 45 U/L Alkaline Phosphatase 83 U/L Total Protein 6.6 gm/dl Albumin 3.3 gm/dl Globulin 3.3 gm/dl Albumin/Globulin Ratio 1.0 Triglycerides Level 147 mg/dl Cholesterol Level 172 mg/dl HDL Cholesterol 35 mg/dl LDL Cholesterol, Calculated 108 mg/dl VLDL Cholesterol, Calculated 29 mg/dl Cholesterol/HDL Ratio 4.9 Diagnostic Results ECG shows sinus tahc with QTc 526 CXR severe congestion/infiltrates throughout lung hall Assessment & Plan This is a 51 year old male with known history of CAD asthma and smoking as well as psoriasis on topical creams. He is admitted in acute on chronic respiratory failure likely due to asthma attack of AECOPD in the setting of NSTEMI, acute exacerbation of CHF both systolic and diastolic. CAP can not be ruled out. Patient is progressing in KAI. despite volume and pressor resuscitation. MAP has been consistently >65 mmHg since 10 pm. neuro continue with propofol, versed fentanyl and nimbex nimbex chosen for minimal interaction with the steroids leading to polymyoneuropathy of the ICU (the least among NM blockers) worsening renal function is a contraindication for precedex respiratory APRV can not be used in this patient with hypercapnia. Will USE volume control modes. TV of 6ml/ Kg ideal body weight. he is 177 cm ideal body TV runs 460 to about 600. He is now on 540 ml. He has an autopeep of 8 we matched that. I increased flow rate to 75 liters/min with that peak airway is 38-40. RR is set to 20/min His I;E ratio is 1-3.5 as such we optimize the exhalation of CO2. air entry is better continue solumedrol symbicort levalbuterol and ipratropium for now. cardiovascular he remains on levofed but we tapered down to 0.04 mcg/kg-min added aspirin and lipitor 90 mg daily heparin drip ongoing cardiology input appreciated. We will FU with them for possible cath renal creatinine increased to 1.8 technically he is in KAI. UO is 150 ml in the last 9 hours he is 1.5 liters positive Will send FeNa. he may need an inotrope but given ongoing STEMI that is contraindicated. FU and replete lytes hyperkalemia. he received IV bicarbonate. will treat acidosis FU ECG ID continue vancomycin zosyn and doxycycline FU blood culture and sputum culture. He has fever now but his WBC is downtrending It is likley that he has multilobar pneumonia GI NPO for now added pantoprazole for prophylaxis DVT he is on therapeutic heparin We need the murray the central line for management now no decubiti endocrine insulin drip for sugar control target 140-180 The patient is critically ill I spent 70 min of CC time managing him today exclusive of procedure time
[2017-03-31] MEDS: PANTOprazole INJ 40 MG in SYRINGE 0 ML IV SCH (11:29)
[2017-03-31] MEDS: MIDAZOLAM 125MG/250ML D5W 250 ML IV PRN (11:29)
[2017-03-31 12:41] LABS: INFLUENZA A PCR Neg for Influ A (NEG); INFLUENZA B PCR Neg for Influ B (NEG)
--- NOTE | 2017-03-31 13:15 | Cardiology Follow-Up ---
Subjective Date of Service: Mar 31, 2017. Pt evaluation today including: conversation w/ family, physical exam, chart review, lab review, review of studies, conversation w/ application consultant, review of inpatient medication list History of Present Illness Patient continues to be intubated and sedated. I was able to obtain some additional history from the patient's brother and father this morning. Apparently he does have significant dyspnea on exertion which is chronic in nature. He continues to be used tobacco. He has not been complaining chest pain recently although the patient's brother states he did make some comments regarding chest symptoms to his son within the past week. Social History Smoking Status: Current Every Day Smoker History of Alcohol Use: Yes (LIQUOR, BICARDI ONCE A WEEK) Review of Systems Review of systems cannot be obtained as the patient is currently sedated and intubated Objective Vital Signs Past 12 Hours Date Time Temp Pulse Resp B/P (MAP) Pulse Ox O2 Delivery O2 Flow Rate FiO2 03/31/17 12:01 37.6 105 20 91/72 (80) 96 03/31/17 12:00 60 03/31/17 12:00 Mechanical Ventilator 70 03/31/17 12:00 60 03/31/17 11:01 37.7 109 20 99/74 (79) 96 03/31/17 10:47 37.7 112 20 99/76 (81) 95 03/31/17 10:39 37.7 104 22 101/74 (79) 96 03/31/17 10:01 37.8 110 26 99/80 (85) 96 03/31/17 10:00 70 03/31/17 09:16 38.4 108 26 95/70 (73) 98 03/31/17 09:01 38.4 108 7 91/63 (71) 97 03/31/17 08:46 38.4 107 0 96/64 (71) 97 03/31/17 08:31 38.4 107 26 97/67 (76) 97 03/31/17 08:16 38.4 107 26 94/65 (76) 97 03/31/17 08:01 38.4 107 0 93/64 (77) 97 03/31/17 08:00 Mechanical Ventilator 03/31/17 08:00 Mechanical Ventilator 70 03/31/17 08:00 70 03/31/17 08:00 70 03/31/17 07:33 70 03/31/17 07:16 38.4 106 4 87/60 (69) 97 03/31/17 07:01 38.4 105 0 92/60 (71) 97 03/31/17 06:46 38.4 105 26 92/62 (72) 97 03/31/17 06:31 38.3 105 26 88/63 (71) 96 03/31/17 06:16 38.4 106 26 92/62 (72) 96 03/31/17 06:01 38.3 106 26 92/64 (73) 95 03/31/17 05:46 38.4 107 26 90/58 (69) 95 03/31/17 05:39 70 03/31/17 05:31 38.4 107 26 93/62 (72) 95 03/31/17 05:16 38.4 106 26 90/56 (67) 95 03/31/17 05:01 38.5 106 26 81/58 (66) 94 03/31/17 04:47 99 25 75/51 (59) 94 03/31/17 04:32 105 20 85/64 (71) 91 03/31/17 04:16 114 20 77/51 (60) 91 03/31/17 04:11 91 Mechanical Ventilator 70 03/31/17 04:02 111 20 82/62 (69) 91 03/31/17 04:02 111 20 82/62 (69) 91 03/31/17 03:47 112 20 80/49 (59) 03/31/17 03:34 113 20 86/53 (64) 03/31/17 03:31 113 20 78/54 (62) 91 03/31/17 03:17 115 20 81/56 (64) 92 03/31/17 03:01 110 20 88/53 (65) 93 03/31/17 02:56 70 03/31/17 02:46 119 15 78/65 (69) 94 03/31/17 02:32 114 20 75/57 (63) 92 03/31/17 02:17 117 20 99/52 (68) 93 03/31/17 02:11 115 20 75/61 (66) 93 03/31/17 02:01 115 20 75/61 (66) 92 Last Recorded Weight-Kilograms: 119.900 Physical Exam Currently intubated and sedated HEENT:The sclerae are anicteric. Neuro: Unable to cooperate with the exam Neck: Redundant tissue He has palpable carotid pulses bilaterally without bruits on auscultation. The thyroid is not enlarged. Lungs: He has occasional expiratory wheezing. He still has occasional by both lateral rales. Cardiac: Heart demonstrates a regular rhythm. Normal S1 and S2. Soft holosystolic. Pulses: The patient has palpable radial pulses bilaterally that are equal in intensity. He has good dorsalis pedis pulses bilateral Extremities: There was no evidence of hypoperfusion. There is no cyanosis or clubbing. There is no edema. Skin: Patient does have erythema to this patchy macules over his entire body. Data Laboratory Results: Last 24 Hours Test 03/30/17 17:20 03/30/17 17:29 03/30/17 17:42 03/30/17 17:47 Bedside Hemoglobin 19.7 g/dl 18.4 g/dl Bedside Hematocrit 58 % 54 % Bedside Sodium 137 mEq/L 135 mEq/L Bedside Potassium 6.0 mEq/L 4.3 mEq/L Bedside Chloride 105 mEq/L Bedside Total CO2 23 mEq/l Anion Gap 16.0 mmol/L 9.0 mmol/L Bedside Blood Urea Nitrogen 19 mg/dl Bedside Creatinine 1.0 mg/dl Bedside Glucose (other) 222 mg/dl Bedside Ionized Calcium (Bautista) 1.06 mmol/l White Blood Count 18.76 K/uL Red Blood Count 5.61 M/uL Hemoglobin 17.5 g/dL Hematocrit 52.8 % Mean Corpuscular Volume 94.1 fL Mean Corpuscular Hemoglobin 31.2 pg Mean Corpuscular Hemoglobin Concent 33.1 g/dl Platelet Count 303 K/uL Mean Platelet Volume 9.4 fL Neutrophils (%) (Auto) 71.0 % Lymphocytes (%) (Auto) 20.6 % Monocytes (%) (Auto) 5.6 % Eosinophils (%) (Auto) 1.7 % Basophils (%) (Auto) 0.5 % Neutrophils # (Auto) 13.31 K/uL Lymphocytes # (Auto) 3.87 K/uL Monocytes # (Auto) 1.05 K/uL Eosinophils # (Auto) 0.32 K/uL Basophils # (Auto) 0.09 K/uL RDW Standard Deviation 46.9 fL RDW Coefficient of Variation 13.6 % Immature Granulocyte % (Auto) 0.6 % Immature Granulocyte # (Auto) 0.12 K/uL Prothrombin Time 10.7 SECONDS Prothromb Time International Ratio 1.0 Activated Partial Thromboplast Time 25.2 SECONDS Partial Thromboplastin Ratio 1.0 Venous Blood pH 7.06 Venous Blood Partial Pressure CO2 100 mmHg Venous Blood Partial Pressure O2 46 mmHg Venous Blood HCO3 28 mmol/L Venous Blood Oxygen Saturation 65.7 % Venous Blood Base Excess -5.9 mEq/L Sodium Level 137 mmol/L Potassium Level mmol/L Chloride Level 102 mmol/L Carbon Dioxide Level 26 mmol/L Blood Urea Nitrogen 13 mg/dl Creatinine 1.30 mg/dl Est Creatinine Clear Calc Drug Dose 89.2 ml/min Estimated GFR () 72.2 Estimated GFR (Non- 62.3 BUN/Creatinine Ratio 10.2 Random Glucose 255 mg/dl Calcium Level 8.2 mg/dl Total Bilirubin 0.3 mg/dl Aspartate Amino Transf (AST/SGOT) U/L Alanine Aminotransferase (ALT/SGPT) 29 U/L Alkaline Phosphatase 112 U/L Total Creatine Kinase U/L Creatine Kinase MB 7.4 ng/ml Creatine Kinase MB Ratio Troponin I 0.515 ng/ml Pro-B-Type Natriuretic Peptide 2515 pg/ml Total Protein 7.3 gm/dl Albumin 3.3 gm/dl Globulin 4.0 gm/dl Albumin/Globulin Ratio 0.8 Chemistry Specimen Hemolysis Bedside Blood Gas pH (LAB) 7.14 Bedside Blood Gas pCO2 (LAB) 78 mmHg Bedside Blood Gas pO2 (LAB) 113 mmHg Bedside Blood Gas HCO3 (LAB) 26 meq/L Bedside Blood Gas Total CO2 29 mEq/l Bedside Blood Gas Base Excess (LAB) -3.0 meq/L Bedside Blood Gas O2 Saturation 96.0 % Urine Color DK YELLOW Urine Appearance CLEAR Urine pH 5.0 Urine Specific [place] 1.028 Urine Protein 2+ Urine Glucose (UA) NEG Urine Ketones TRACE Urine Occult Blood TRACE Urine Nitrite NEG Urine Bilirubin NEG Urine Urobilinogen NEG Urine Leukocyte Esterase NEG Urine WBC (Auto) 1-5 /hpf Urine RBC (Auto) 0-4 /hpf Urine Hyaline Casts (Auto) 10-30 /lpf Urine Epithelial Cells (Auto) 20-30 /lpf Urine Bacteria (Auto) NEG Urine Pathogenic Casts 0-3 GRANULAR CASTS /lpf Urine Opiates Screen NEG Urine Methadone, Qualitative NEG Urine Barbiturates NEG Urine Phencyclidine (PCP) Level NEG Ur Amphetamine/Methamphetamine NEG MDMA (Ecstasy) Screen NEG Urine Benzodiazepines Screen NEG Urine Cocaine Metabolite NEG Urine Marijuana (THC) NEG Test 03/30/17 18:19 03/30/17 19:18 03/30/17 19:19 03/30/17 22:29 Bedside Lactic Acid Venous 3.04 mmol/L Arterial Blood pH 7.16 Arterial Blood Partial Pressure CO2 80 mmHg Arterial Blood Partial Pressure O2 245 mm/Hg Arterial Blood HCO3 28 mmol/L Arterial Blood Oxygen Saturation 99.6 % Arterial Blood Base Excess -3.5 mEq/L Arterial Blood Gas Delivery 100% Anjel Test POS Pass Potassium Level 4.6 mmol/L Aspartate Amino Transf (AST/SGOT) 48 U/L Total Creatine Kinase 323 U/L Procalcitonin 0.09 ng/ml Chemistry Specimen Hemolysis Blood Gas Sample Site R Radial Bedside Blood Gas pH (LAB) 7.22 Bedside Blood Gas pCO2 (LAB) 69 mmHg Bedside Blood Gas pO2 (LAB) 87 mmHg Bedside Blood Gas HCO3 (LAB) 28 meq/L Bedside Blood Gas Total CO2 30 mEq/l Bedside Blood Gas Base Excess (LAB) 0.0 meq/L Bedside Blood Gas O2 Saturation 94.0 % Oxygen Delivery Device Ventilator Bedside Oxygen Rate (breaths/min) 24 Blood Gas Minute Ventilation 11.3 Bedside FiO2 70 % Blood Gas Tidal Volume 600 Blood Gas PEEP 5 Test 03/30/17 22:49 03/31/17 00:59 03/31/17 03:02 03/31/17 04:26 Bedside Glucose 132 mg/dl Blood Gas Sample Site R Radial R Radial Bedside Blood Gas pH (LAB) 7.27 7.22 Bedside Blood Gas pCO2 (LAB) 61 mmHg 59 mmHg Bedside Blood Gas pO2 (LAB) 75 mmHg 64 mmHg Bedside Blood Gas HCO3 (LAB) 28 meq/L 24 meq/L Bedside Blood Gas Total CO2 30 mEq/l 26 mEq/l Bedside Blood Gas Base Excess (LAB) 1.0 meq/L -4.0 meq/L Bedside Blood Gas O2 Saturation 92.0 % 88.0 % Anjel Test Pass Pass Oxygen Delivery Device Ventilator Ventilator Bedside Oxygen Rate (breaths/min) 20 20 Bedside FiO2 70 % 70 % Blood Gas Tidal Volume 540 540 Blood Gas PEEP 5 5 White Blood Count 22.57 K/uL Red Blood Count 5.50 M/uL Hemoglobin 17.4 g/dL Hematocrit 51.3 % Mean Corpuscular Volume 93.3 fL Mean Corpuscular Hemoglobin 31.6 pg Mean Corpuscular Hemoglobin Concent 33.9 g/dl Platelet Count 292 K/uL Mean Platelet Volume 9.3 fL Neutrophils (%) (Auto) 92.3 % Lymphocytes (%) (Auto) 4.9 % Monocytes (%) (Auto) 2.2 % Eosinophils (%) (Auto) 0.0 % Basophils (%) (Auto) 0.1 % Neutrophils # (Auto) 20.81 K/uL Lymphocytes # (Auto) 1.11 K/uL Monocytes # (Auto) 0.50 K/uL Eosinophils # (Auto) 0.01 K/uL Basophils # (Auto) 0.02 K/uL RDW Standard Deviation 46.9 fL RDW Coefficient of Variation 13.7 % Immature Granulocyte % (Auto) 0.5 % Immature Granulocyte # (Auto) 0.12 K/uL Sodium Level 136 mmol/L Potassium Level 5.8 mmol/L Chloride Level 102 mmol/L Carbon Dioxide Level 29 mmol/L Anion Gap 5.0 mmol/L Blood Urea Nitrogen 17 mg/dl Creatinine 1.80 mg/dl Est Creatinine Clear Calc Drug Dose 62.9 ml/min Estimated GFR () 48.7 Estimated GFR (Non- 42.0 BUN/Creatinine Ratio 9.6 Random Glucose 214 mg/dl Lactic Acid Level 3.0 mmol/L Calcium Level 7.5 mg/dl Magnesium Level 2.5 mg/dl Total Bilirubin 0.7 mg/dl Aspartate Amino Transf (AST/SGOT) 119 U/L Alanine Aminotransferase (ALT/SGPT) 36 U/L Alkaline Phosphatase 97 U/L Troponin I 8.300 ng/ml Total Protein 7.1 gm/dl Albumin 3.5 gm/dl Globulin 3.6 gm/dl Albumin/Globulin Ratio 1.0 Lipase 58 U/L Test 03/31/17 07:47 03/31/17 07:50 03/31/17 10:20 03/31/17 12:58 Prothrombin Time 11.0 SECONDS Prothromb Time International Ratio 1.0 Activated Partial Thromboplast Time 56.5 SECONDS Partial Thromboplastin Ratio 2.2 White Blood Count 16.86 K/uL Red Blood Count 5.44 M/uL Hemoglobin 17.1 g/dL Hematocrit 50.5 % Mean Corpuscular Volume 92.8 fL Mean Corpuscular Hemoglobin 31.4 pg Mean Corpuscular Hemoglobin Concent 33.9 g/dl RDW Standard Deviation 47.1 fL RDW Coefficient of Variation 14.0 % Platelet Count 268 K/uL Mean Platelet Volume 9.4 fL Sodium Level 135 mmol/L Potassium Level 5.2 mmol/L Chloride Level 100 mmol/L Carbon Dioxide Level 28 mmol/L Anion Gap 7.0 mmol/L Blood Urea Nitrogen 20 mg/dl Creatinine 1.90 mg/dl Est Creatinine Clear Calc Drug Dose 59.2 ml/min Estimated GFR () 45.6 Estimated GFR (Non- 39.4 BUN/Creatinine Ratio 10.5 Random Glucose 204 mg/dl Estimated Average Glucose 117 mg/dl Hemoglobin A1c 5.7 % Calcium Level 7.9 mg/dl Total Bilirubin 0.6 mg/dl Aspartate Amino Transf (AST/SGOT) 201 U/L Alanine Aminotransferase (ALT/SGPT) 45 U/L Alkaline Phosphatase 83 U/L Total Protein 6.6 gm/dl Albumin 3.3 gm/dl Globulin 3.3 gm/dl Albumin/Globulin Ratio 1.0 Triglycerides Level 147 mg/dl Cholesterol Level 172 mg/dl HDL Cholesterol 35 mg/dl LDL Cholesterol, Calculated 108 mg/dl VLDL Cholesterol, Calculated 29 mg/dl Cholesterol/HDL Ratio 4.9 Influenza Type A (RT-PCR) Neg for Influ A Influenza Type A Antigen Neg for Influ A Influenza Type B Antigen Neg for Influ B Influenza Type B (RT-PCR) Neg for Influ B Imaging: Repeat chest x-ray demonstrated slightly improved pulmonary vascular congestion Telemetry reviewed: Overall heart rates improved Assessment and Plan 1. Acute decompensated left ventricular failure: Echocardiogram demonstrated moderate reduced LV systolic function. He clearly has continued pulmonary vascular congestion. He has not affected a significant diuresis yet. However it seems more aggressive efforts are being entertained. He does have an element of renal injury. He also received significant amount of fluids last night in an attempt to reverse and acidosis. Hopefully we can affect a significant diuresis which will improve his vascular congestion and improve his oxygenation. Should these efforts be refractory the patient may require transfer to a tertiary care facility where he can receive some form of mechanical support or ECMO. 2. Non ST-elevation myocardial infarction: Patient's troponin was up to 8 today. There is a possibility this is simply demand related given the severe respiratory distress he had leading up to his admission. His certainly possible that he had an ischemic event which precipitated his decline. There were no ST elevations on EKG, but he may have occluded a graft at some point. He should have repeat angiography, but given his acute renal injury I think this can be safely deferred until his condition stabilizes. 3. Tachycardia: There is a possibility that his initial rhythm was in atrial flutter, but efforts to discern the true nature were inconclusive. Clearly now has a sinus tachycardia related to his acute illness. Final recommendations: Continue attempts at diuresis Continue heparin Defer coronary angiography until renal function improves Consider transfer to tertiary care facility if we are unable to affect a significant diuresis due to presumed cardiogenic shock
[2017-03-31 13:47] LABS: BUN/CREATININE RATIO 11.4 (10-20); CALCIUM 8.3 mg/dl (8.5-10.1); CREATININE 1.9 mg/dl (0.60-1.40); POTASSIUM 4.6 mmol/L (3.5-5.1)
--- NOTE | 2017-03-31 14:14 | Procedure Note ---
Procedure Note Procedure Date Mar 31, 2017. (Jay Edwards PA-C) Procedure Description Procedure Name: RIGHT Arterial Line Procedure time out: side/site verified, patient ID confirmed Consent obtained: written Time of procedure: 13:30 Performed by: physician travel information center supervisor Indications: diagnostic Contraindications: none Complications: none Patient tolerated procedure: well Post-procedure vital signs: reviewed and stable Comments: Prior to procedure, mini timeout was performed. The RIGHT wrist was cleansed and prepped in the typical sterile fashion utilizing chlorhexidine and standard draping. The ultrasound probe with sterile sheath was utilized to visualize RIGHT radial artery. 1% lidocaine without epinephrine was used to anesthetize the insertion point. After proper anesthetization, initial attempt with 20- gauge arterial line was unsuccessful despite apparent cannulation on longitudinal view. On second attempt, the RIGHT radial artery was easily cannulated and needle was easily thread using modified Seldinger technique. The catheter was advanced with return of adequate arterial blood flow. Catheter was attached to line set successfully. Confirmation with adequate waveforms appreciated on monitor. The catheter was secured using securing device as well as 1 suture. The area was dressed with a Tegaderm dressing. Patient tolerated procedure well. No complications were met. Ultrasound images were saved for review. (Jay Edwards, GUS)
[2017-03-31 14:33] LABS: ISTAT ARTERIAL BLOOD GAS HCO3 26 meq/L (19-24); ISTAT ARTERIAL BLOOD GAS PCO2 51 mmHg (35-46); ISTAT ARTERIAL BLOOD GAS PO2 114 mmHg (80-95); ISTAT ARTERIAL BLOOD GAS pH 7.32 (7.35-7.45); ISTAT CARBON DIOXIDE 28 mEq/l (24-31); ISTAT DELIVERY SYSTEM Ventilator; ISTAT FIO2 60 %; ISTAT PEEP 8; ISTAT RATE 24; ISTAT SITE Art Line; VE 9.9; Vt 540
[2017-03-31] MEDS: NOREPINEPHRINE BIT INJ 8 MG in DEXTROSE 5% 500ML 500 ML IV PRN (16:19)
--- NOTE | 2017-03-31 17:05 | Progress Note ---
Subjective Date of Service: Mar 31, 2017. Subjective Patient is sedated and ventilated now with paralysis to the fighting the vent sustained a non-STEMI, acute respiratory failure with heart failure likely acute systolic heart failure and needs maximum risk for support Problem List Medical Problems: (1) Polycythemia Status: Acute (2) Pulmonary edema Status: Acute (3) Respiratory acidosis Status: Acute (4) Respiratory failure Status: Acute (5) Wide-complex tachycardia Status: Acute Review of Systems Unable to obtain review of systems due to intubation ventilation and sedation Objective Vital Signs Date Time Temp Pulse Resp B/P (MAP) Pulse Ox O2 Delivery O2 Flow Rate FiO2 03/31/17 07:33 70 03/31/17 07:16 38.4 106 4 87/60 (69) 97 03/31/17 07:01 38.4 105 0 92/60 (71) 97 03/31/17 06:46 38.4 105 26 92/62 (72) 97 03/31/17 06:31 38.3 105 26 88/63 (71) 96 03/31/17 06:16 38.4 106 26 92/62 (72) 96 03/31/17 06:01 38.3 106 26 92/64 (73) 95 03/31/17 05:46 38.4 107 26 90/58 (69) 95 03/31/17 05:39 70 03/31/17 05:31 38.4 107 26 93/62 (72) 95 03/31/17 05:16 38.4 106 26 90/56 (67) 95 03/31/17 05:01 38.5 106 26 81/58 (66) 94 03/31/17 04:47 99 25 75/51 (59) 94 03/31/17 04:32 105 20 85/64 (71) 03/31/17 04:16 114 20 77/51 (60) 03/31/17 04:11 91 Mechanical Ventilator 70 03/31/17 04:02 111 20 82/62 (69) 03/31/17 04:02 111 20 82/62 (69) 03/31/17 03:47 112 20 80/49 (59) 03/31/17 03:34 113 20 86/53 (64) 03/31/17 03:31 113 20 78/54 (62) 03/31/17 03:17 115 20 81/56 (64) 92 03/31/17 03:01 110 20 88/53 (65) 93 03/31/17 02:56 70 03/31/17 02:46 119 15 78/65 (69) 94 03/31/17 02:32 114 20 75/57 (63) 92 03/31/17 02:17 117 20 99/52 (68) 93 03/31/17 02:11 115 20 75/61 (66) 93 03/31/17 02:01 115 20 75/61 (66) 92 03/31/17 01:01 119 20 77/63 (68) 93 03/31/17 00:46 70 03/31/17 00:46 119 20 82/59 (67) 92 03/31/17 00:32 121 24 88/62 (71) 97 03/31/17 00:26 121 24 100/54 (69) 96 03/31/17 00:21 122 24 86/63 (71) 92 03/31/17 00:16 125 20 110/66 (81) 90 03/31/17 00:13 92 Mechanical Ventilator 70 03/31/17 00:01 127 35 108/85 (93) 94 03/30/17 23:48 130 37 100/60 (73) 91 03/30/17 23:31 132 34 110/61 (77) 92 03/30/17 23:16 129 31 112/70 (84) 93 03/30/17 23:01 129 33 113/66 (82) 93 03/30/17 22:46 129 33 116/73 (87) 93 03/30/17 22:31 124 30 101/72 (82) 98 03/30/17 22:17 122 30 88/70 (76) 96 03/30/17 22:02 37.6 124 24 71/48 96 Mechanical Ventilator 70 03/30/17 22:02 119 29 104/61 (75) 100 03/30/17 21:40 70 03/30/17 21:10 115 24 93/57 100 Mechanical Ventilator 03/30/17 20:55 70 03/30/17 20:45 113 24 61/50 95 Room Air 03/30/17 20:16 104/73 03/30/17 20:07 97/76 03/30/17 20:06 117 22 97 9/5/17 20:01 97/76 03/30/17 19:51 121 22 98 03/30/17 19:46 105/71 03/30/17 19:45 126 96 03/30/17 19:36 102/69 03/30/17 19:31 92/80 03/30/17 19:30 130 96 03/30/17 19:16 116/85 03/30/17 19:15 133 94 03/30/17 19:01 113/80 03/30/17 19:00 132 22 97 03/30/17 18:57 136 22 121/78 97 Mechanical Ventilator 100 03/30/17 18:36 108/77 03/30/17 18:35 147 22 98 03/30/17 18:31 111/90 03/30/17 18:30 89 Non-Rebreather 15.0 03/30/17 18:27 132/108 03/30/17 18:25 159 22 98 03/30/17 18:21 155/110 03/30/17 18:16 166/101 03/30/17 18:15 170 22 98 03/30/17 18:11 161/119 03/30/17 18:06 146/125 03/30/17 18:05 177 22 97 03/30/17 18:00 178 115/119 96 Mechanical Ventilator 100 03/30/17 17:50 177 170/112 96 Mechanical Ventilator 100 03/30/17 17:40 165 155/105 95 Mechanical Ventilator 100 03/30/17 17:35 164 142/99 94 Mechanical Ventilator 100 03/30/17 17:35 100 03/30/17 17:23 156 03/30/17 17:23 191 86/62 87 Ambu-Bag 03/30/17 17:17 166 105/65 94 Non-Rebreather 15.0 03/30/17 17:11 176 03/30/17 17:00 37.4 169 40 115/91 89 Non-Rebreather 15.0 03/30/17 17:00 Non-Rebreather 15.0 Physical Exam General Appearance: + moderate distress, + obese Eyes: PERRL, sclerae normal Neck: trachea midline Respiratory/Chest: + decreased breath sounds, + rhonchi Cardiovascular: regular rate, rhythm, no murmur Abdomen: normal bowel sounds, soft Extremities: normal inspection, no pedal edema Skin: normal color, warm/dry Laboratory Results Last 24 Hours Test 03/30/17 17:20 03/30/17 17:29 03/30/17 17:42 03/30/17 17:47 Bedside Hemoglobin 19.7 g/dl 18.4 g/dl Bedside Hematocrit 58 % 54 % Bedside Sodium 137 mEq/L 135 mEq/L Bedside Potassium 6.0 mEq/L 4.3 mEq/L Bedside Chloride 105 mEq/L Bedside Total CO2 23 mEq/l Anion Gap 16.0 mmol/L 9.0 mmol/L Bedside Blood Urea Nitrogen 19 mg/dl Bedside Creatinine 1.0 mg/dl Bedside Glucose (other) 222 mg/dl Bedside Ionized Calcium (Bautista) 1.06 mmol/l White Blood Count 18.76 K/uL Red Blood Count 5.61 M/uL Hemoglobin 17.5 g/dL Hematocrit 52.8 % Mean Corpuscular Volume 94.1 fL Mean Corpuscular Hemoglobin 31.2 pg Mean Corpuscular Hemoglobin Concent 33.1 g/dl Platelet Count 303 K/uL Mean Platelet Volume 9.4 fL Neutrophils (%) (Auto) 71.0 % Lymphocytes (%) (Auto) 20.6 % Monocytes (%) (Auto) 5.6 % Eosinophils (%) (Auto) 1.7 % Basophils (%) (Auto) 0.5 % Neutrophils # (Auto) 13.31 K/uL Lymphocytes # (Auto) 3.87 K/uL Monocytes # (Auto) 1.05 K/uL Eosinophils # (Auto) 0.32 K/uL Basophils # (Auto) 0.09 K/uL RDW Standard Deviation 46.9 fL RDW Coefficient of Variation 13.6 % Immature Granulocyte % (Auto) 0.6 % Immature Granulocyte # (Auto) 0.12 K/uL Prothrombin Time 10.7 SECONDS Prothromb Time International Ratio 1.0 Activated Partial Thromboplast Time 25.2 SECONDS Partial Thromboplastin Ratio 1.0 Venous Blood pH 7.06 Venous Blood Partial Pressure CO2 100 mmHg Venous Blood Partial Pressure O2 46 mmHg Venous Blood HCO3 28 mmol/L Venous Blood Oxygen Saturation 65.7 % Venous Blood Base Excess -5.9 mEq/L Sodium Level 137 mmol/L Potassium Level mmol/L Chloride Level 102 mmol/L Carbon Dioxide Level 26 mmol/L Blood Urea Nitrogen 13 mg/dl Creatinine 1.30 mg/dl Est Creatinine Clear Calc Drug Dose 89.2 ml/min Estimated GFR () 72.2 Estimated GFR (Non- 62.3 BUN/Creatinine Ratio 10.2 Random Glucose 255 mg/dl Calcium Level 8.2 mg/dl Total Bilirubin 0.3 mg/dl Aspartate Amino Transf (AST/SGOT) U/L Alanine Aminotransferase (ALT/SGPT) 29 U/L Alkaline Phosphatase 112 U/L Total Creatine Kinase U/L Creatine Kinase MB 7.4 ng/ml Creatine Kinase MB Ratio Troponin I 0.515 ng/ml Pro-B-Type Natriuretic Peptide 2515 pg/ml Total Protein 7.3 gm/dl Albumin 3.3 gm/dl Globulin 4.0 gm/dl Albumin/Globulin Ratio 0.8 Chemistry Specimen Hemolysis Bedside Blood Gas pH (LAB) 7.14 Bedside Blood Gas pCO2 (LAB) 78 mmHg Bedside Blood Gas pO2 (LAB) 113 mmHg Bedside Blood Gas HCO3 (LAB) 26 meq/L Bedside Blood Gas Total CO2 29 mEq/l Bedside Blood Gas Base Excess (LAB) -3.0 meq/L Bedside Blood Gas O2 Saturation 96.0 % Urine Color DK YELLOW Urine Appearance CLEAR Urine pH 5.0 Urine Specific [place] 1.028 Urine Protein 2+ Urine Glucose (UA) NEG Urine Ketones TRACE Urine Occult Blood TRACE Urine Nitrite NEG Urine Bilirubin NEG Urine Urobilinogen NEG Urine Leukocyte Esterase NEG Urine WBC (Auto) 1-5 /hpf Urine RBC (Auto) 0-4 /hpf Urine Hyaline Casts (Auto) 10-30 /lpf Urine Epithelial Cells (Auto) 20-30 /lpf Urine Bacteria (Auto) NEG Urine Pathogenic Casts 0-3 GRANULAR CASTS /lpf Urine Opiates Screen NEG Urine Methadone, Qualitative NEG Urine Barbiturates NEG Urine Phencyclidine (PCP) Level NEG Ur Amphetamine/Methamphetamine NEG MDMA (Ecstasy) Screen NEG Urine Benzodiazepines Screen NEG Urine Cocaine Metabolite NEG Urine Marijuana (THC) NEG Test 03/30/17 18:19 03/30/17 19:18 03/30/17 19:19 03/30/17 22:29 Bedside Lactic Acid Venous 3.04 mmol/L Arterial Blood pH 7.16 Arterial Blood Partial Pressure CO2 80 mmHg Arterial Blood Partial Pressure O2 245 mm/Hg Arterial Blood HCO3 28 mmol/L Arterial Blood Oxygen Saturation 99.6 % Arterial Blood Base Excess -3.5 mEq/L Arterial Blood Gas Delivery 100% Anjel Test POS Pass Potassium Level 4.6 mmol/L Aspartate Amino Transf (AST/SGOT) 48 U/L Total Creatine Kinase 323 U/L Procalcitonin 0.09 ng/ml Chemistry Specimen Hemolysis Blood Gas Sample Site R Radial Bedside Blood Gas pH (LAB) 7.22 Bedside Blood Gas pCO2 (LAB) 69 mmHg Bedside Blood Gas pO2 (LAB) 87 mmHg Bedside Blood Gas HCO3 (LAB) 28 meq/L Bedside Blood Gas Total CO2 30 mEq/l Bedside Blood Gas Base Excess (LAB) 0.0 meq/L Bedside Blood Gas O2 Saturation 94.0 % Oxygen Delivery Device Ventilator Bedside Oxygen Rate (breaths/min) 24 Blood Gas Minute Ventilation 11.3 Bedside FiO2 70 % Blood Gas Tidal Volume 600 Blood Gas PEEP 5 Test 03/30/17 22:49 03/31/17 00:59 03/31/17 03:02 03/31/17 04:26 Bedside Glucose 132 mg/dl Blood Gas Sample Site R Radial R Radial Bedside Blood Gas pH (LAB) 7.27 7.22 Bedside Blood Gas pCO2 (LAB) 61 mmHg 59 mmHg Bedside Blood Gas pO2 (LAB) 75 mmHg 64 mmHg Bedside Blood Gas HCO3 (LAB) 28 meq/L 24 meq/L Bedside Blood Gas Total CO2 30 mEq/l 26 mEq/l Bedside Blood Gas Base Excess (LAB) 1.0 meq/L -4.0 meq/L Bedside Blood Gas O2 Saturation 92.0 % 88.0 % Anjel Test Pass Pass Oxygen Delivery Device Ventilator Ventilator Bedside Oxygen Rate (breaths/min) 20 20 Bedside FiO2 70 % 70 % Blood Gas Tidal Volume 540 540 Blood Gas PEEP 5 5 White Blood Count 22.57 K/uL Red Blood Count 5.50 M/uL Hemoglobin 17.4 g/dL Hematocrit 51.3 % Mean Corpuscular Volume 93.3 fL Mean Corpuscular Hemoglobin 31.6 pg Mean Corpuscular Hemoglobin Concent 33.9 g/dl Platelet Count 292 K/uL Mean Platelet Volume 9.3 fL Neutrophils (%) (Auto) 92.3 % Lymphocytes (%) (Auto) 4.9 % Monocytes (%) (Auto) 2.2 % Eosinophils (%) (Auto) 0.0 % Basophils (%) (Auto) 0.1 % Neutrophils # (Auto) 20.81 K/uL Lymphocytes # (Auto) 1.11 K/uL Monocytes # (Auto) 0.50 K/uL Eosinophils # (Auto) 0.01 K/uL Basophils # (Auto) 0.02 K/uL RDW Standard Deviation 46.9 fL RDW Coefficient of Variation 13.7 % Immature Granulocyte % (Auto) 0.5 % Immature Granulocyte # (Auto) 0.12 K/uL Sodium Level 136 mmol/L Potassium Level 5.8 mmol/L Chloride Level 102 mmol/L Carbon Dioxide Level 29 mmol/L Anion Gap 5.0 mmol/L Blood Urea Nitrogen 17 mg/dl Creatinine 1.80 mg/dl Est Creatinine Clear Calc Drug Dose 62.9 ml/min Estimated GFR () 48.7 Estimated GFR (Non- 42.0 BUN/Creatinine Ratio 9.6 Random Glucose 214 mg/dl Lactic Acid Level 3.0 mmol/L Calcium Level 7.5 mg/dl Magnesium Level 2.5 mg/dl Total Bilirubin 0.7 mg/dl Aspartate Amino Transf (AST/SGOT) 119 U/L Alanine Aminotransferase (ALT/SGPT) 36 U/L Alkaline Phosphatase 97 U/L Troponin I 8.300 ng/ml Total Protein 7.1 gm/dl Albumin 3.5 gm/dl Globulin 3.6 gm/dl Albumin/Globulin Ratio 1.0 Lipase 58 U/L Test 03/31/17 07:30 Assessment and Plan 51 M presented with acute hypoxic respiratory failure requiring ventilation, atrial tachycardia with abberant appearance and non stemi Cardiac, has known CABG, so elevated troponin could be supply demand from tachycardia, will trend likely may be an and STEMI at best once recovers from this acute event consideration for left heart catheterization, the the patient be continued on heparin therapy for non-STEMI given the fact the troponin has risen from 8-33 acid will be given via his NG tube he does have some slight elevation of his transaminases we'll hold off on statin therapy at this time With unknown cause of ventilatory failure there is concern of sepsis on presentation he was given dose of vancomycin and now continues on doxycycline and Zosyn cultures of blood and sputum are currently pending Atrial tachycardia with aberrancy patient has in sinus rhythm is placed on full anticoagulation at this point, this will also serve as DVT prevention acute systolic heart failure causing respiratory failure, ventilation and management per ICU team with diuresis, echocardiogram shows depressed ejection fraction acute renal failure likely from ATN , continued attempts diuresis need to be undertaken due to the requirement for ventilatory support Leukocytosis, unclear, does have elevated lactic acid, but could be from perfusion limitation during tachycardia, is on antibiotic coverage he did have mucus from his endotracheal tube suggesting bronchitis there is no defined pneumonia on x-ray
[2017-03-31] MEDS ORDERED: ATORVASTATIN 40 MG TAB NJ ONE (17:08)
[2017-03-31] MEDS ORDERED: ASPIRIN 81 MG CHEW NJ ONE (17:08)
[2017-03-31] MEDS ORDERED: FUROSEMIDE INJ 40 MG in SYRINGE 0 ML IV SCH (18:00)
[2017-03-31] MEDS ORDERED: FIBERSOURCE HN 1000ML BAG PO SCH ×2 (18:00)
[2017-04-01] VITALS (10 sets, daily range): BP systolic 88–109; BP diastolic 61–80; PULSE 101–119; TEMP 36.7–37.6; O2SAT 86–96
[2017-04-01] MEDS ORDERED: ALBUMIN 25% 50 ML with FUROSEMIDE INJ 40 MG IV STA ×2 (00:14)
[2017-04-01] MEDS ORDERED: MODERATE STRESS LEVEL ONE (00:15)
[2017-04-01] MEDS ORDERED: PHARMACY GLYCEMIC MGMT CONSULT PRN (00:31)
[2017-04-01] MEDS: CISATRACURIUM BESYLATE INJ 40 MG in SODIUM CHLORIDE 0.9% 100ML 80 ML IV PRN ×2 (00:42→06:11)
[2017-04-01] MEDS: PROPOFOL IV EMULSION 10 MG/ML 100 ML VIAL IV PRN ×2 (00:43→06:09)
[2017-04-01] MEDS ORDERED: INSULIN ASPART 100 UNITS/ML 3 ML PEN SC STA (00:48)
[2017-04-01] MEDS ORDERED: LANTUS PER UNIT CHARGE SQ STA (00:51)
[2017-04-01] MEDS: LEValbuterol HFA 15GM INHALER INH SCH ×2 (02:17→07:20)
[2017-04-01] MEDS: IPRATROPIUM BROMIDE HFA INHALER INH SCH ×2 (02:17→07:20)
[2017-04-01] MEDS ORDERED: VANCOMYCIN INJ 2,750 MG in SODIUM CHLORIDE 0.9% 500ML 500 ML IV SCH (03:00)
[2017-04-01] MEDS: PIPERACILL/TAZOBAC IV 4.5 GM in DEXTROSE 5% 100ML 100 ML IV SCH (03:21)
[2017-04-01] MEDS ORDERED: INSULIN ASPART 100 UNITS/ML 3 ML PEN SC SCH ×3 (04:00→08:00)
[2017-04-01] MEDS: METHYLPREDNISOLONE IV 60 MG in SYRINGE 0 ML IV SCH (05:59)
[2017-04-01 06:03] LABS: BASO % 0.1 %; BASO ABS # 0.02 K/uL (0-0.2); COMPLETE YES; IG% 0.5 %; LYMPH ABS # 1.56 K/uL (1.2-3.4); MEAN CELL VOLUME 92.6 fL (80-100); MEAN CORPUSCULAR HEMOGLOBIN 31.8 pg (25-34); MEAN CORPUSCULAR HGB CONC 34.3 g/dl (32-36); MEAN PLATELET VOLUME 9.7 fL (7.4-10.4); MONO % 6.3 %; NEUT % 86.1 %; PLATELET COUNT 232 K/uL (130-400); RED BLOOD COUNT 5.29 M/uL (4.7-6.1); WHITE BLOOD COUNT 22.29 K/uL (4.8-10.8)
[2017-04-01] MEDS: HEPARIN 25,000 UNIT/500ML D5W 500 ML IV PRN (06:10)
[2017-04-01 06:27] LABS: ISTAT ARTERIAL BLOOD GAS HCO3 26 meq/L (19-24); ISTAT ARTERIAL BLOOD GAS PCO2 57 mmHg (35-46); ISTAT ARTERIAL BLOOD GAS PO2 67 mmHg (80-95); ISTAT ARTERIAL BLOOD GAS pH 7.26 (7.35-7.45); ISTAT CARBON DIOXIDE 27 mEq/l (24-31); ISTAT HEMATOCRIT 52 % (42-52); ISTAT HEMOGLOBIN 17.7 g/dl (14.0-18.0); ISTAT SODIUM 134 mEq/L (135-144)
[2017-04-01 06:32] LABS: INR 1.1 (0.9-1.1); PARTIAL THROMBOPLASTIN RATIO 3.1; PROTHROMBIN TIME (PATIENT) 11.8 SECONDS (9.0-12.0)
[2017-04-01 06:38] LABS: BUN/CREATININE RATIO 16.1 (10-20); CALCIUM 7.6 mg/dl (8.5-10.1); MAGNESIUM 2.5 mg/dl (1.8-2.4); POTASSIUM 4.5 mmol/L (3.5-5.1)
[2017-04-01 06:49] LABS: PHOSPHORUS 4.8 mg/dl (2.5-4.9)
[2017-04-01] MEDS: BUDESONIDE/FORMOTEROL FUMARATE 80/4.5 60 PUFFS/INHALER INH SCH (07:20)
--- NOTE | 2017-04-01 07:43 | DIAGNOSTIC IMAGING REPORT ---
CHEST ONE VIEW PORTABLE CLINICAL HISTORY: respiratory failure dyspnea COMPARISON STUDY: 03/31/2017 FINDINGS: Moderate stable cardiomegaly. Endotracheal tube 4 cm above the mary. Nasogastric tube within the stomach. Findings of diffuse bilateral parenchymal infiltrative change versus pulmonary edema is similar. IMPRESSION: Pulmonary edema similar compared to the prior study. Tubes and lines positioned as noted. The above report was generated using voice recognition software. It may contain grammatical, syntax or spelling errors. Electronically signed by: Mark Racson M.D. 04/01/2017 7:42 AM Dictated Date/Time: 04/01/2017 7:41 AM
[2017-04-01] MEDS ORDERED: FUROSEMIDE 40 MG/4 ML VIAL ONE (07:46)
[2017-04-01] MEDS ORDERED: NURSING VERBAL MED ORDER ONE (08:00)
[2017-04-01] MEDS ORDERED: RAPID SEQUENCE INDUCTION BAG ONE (08:05)
[2017-04-01] MEDS ORDERED: METHYLPREDNISOLONE 125 MG VIAL IV STA (08:11)
[2017-04-01] MEDS ORDERED: FUROSEMIDE INJ 100 MG in DEXTROSE 5% 100ML 90 ML IV SCH (08:30)
[2017-04-01 08:31] LABS: ISTAT ARTERIAL BLOOD GAS HCO3 31 meq/L (19-24); ISTAT ARTERIAL BLOOD GAS PCO2 > 115 mmHg (35-46); ISTAT ARTERIAL BLOOD GAS PO2 77 mmHg (80-95); ISTAT ARTERIAL BLOOD GAS pH 7.01 (7.35-7.45); ISTAT CARBON DIOXIDE 34 mEq/l (24-31); ISTAT DELIVERY SYSTEM BagValve; ISTAT FIO2 100 %; ISTAT PEEP 10; ISTAT SITE Art Line
[2017-04-01] MEDS: MAGNESIUM SULFATE 1GM / D5W 1 GM in PREMIXED IN D5W 100 ML IV SCH ×2 (08:33→09:15)
[2017-04-01] MEDS ORDERED: ATORVASTATIN 40 MG TAB NJ SCH (09:00)
[2017-04-01] MEDS ORDERED: ASPIRIN 81 MG CHEW NJ SCH (09:00)
[2017-04-01] MEDS ORDERED: ASPCH81 NJ (09:01)
[2017-04-01] MEDS ORDERED: LPT40 NJ (09:01)
[2017-04-01] MEDS ORDERED: SYMIN8045 INH (09:01)
[2017-04-01] MEDS ORDERED: ZSYI45 IV (09:01)
[2017-04-01] MEDS ORDERED: NVLGIPEN SC (09:01)
--- NOTE | 2017-04-01 09:03 | Discharge Instructions ---
Discharge Instructions Date of Service Apr 01, 2017. Admission Reason for Admission: Respiratory Failure With Hypoxia Discharge Discharge Diagnosis / Problem: non stemi, cardiogenic shock Discharge Goals Goal(s): Diagnostic testing, Therapeutic intervention Activity Recommendations Activity Limitations: as noted below Lifting Limitations: until after follow-up appointment . Instructions / Follow-Up Instructions / Follow-Up Home Care: * Take your medications exactly as directed. Don't skip doses. * Remember that recovery after a heart attack takes time. Plan to rest for at lease 4-8 weeks while you recover. Then return to normal activity when your doctor says it's okay. * Ask your doctor about joining a heart rehabilitation program. * Tell your doctor if you are feeling depressed. Feelings of sadness are common after a heart attack, but it is important that you speak to someone if you are feeling overwhelmed by these feelings. * If you are having chest pain, call 911 for an ambulance. Do NOT drive yourself to the hospital. * Ask your family members to learn CPR. * Learn to take your own blood pressure and pulse. Keep a record of your results. Ask your doctor when you should seek emergency medical attention. He or she will tell you which blood pressure reading is dangerous. Lifestyle Changes: * Maintain a healthy weight. Get help to lose any extra pounds. * Cut back on salt. * Limit canned, dried, packaged, and fast foods. * Don't add salt to your food. * Season foods with herbs instead of salt when you cook. * Break the smoking habit. Enroll in a stop-smoking program to improve your chances of success. * Limit fatty foods. * Ask your doctor about having your lipid levels checked regularly. * Build up your activity according to your doctor's recommendation. * Ask your doctor when it's okay to resume sexual activity. * Tell your doctor about any erectile dysfunction (ED) medication you are taking. Some ED medications are not safe if you take certain heart medications. * Try to manage stress. Follow Up: It is important for you to keep your follow up appointments with your medical provider. Current Hospital Diet Patient's current hospital diet: Discharge Diet Recommended Diet: N/A Pending Studies Studies pending at discharge: yes (cultures) List of pending studies: cultures Laboratory Results Hemoglobin A1c Test 03/31/17 07:50 Range/Units Estimated Average Glucose 117 mg/dl Hemoglobin A1c 5.7 H 4.5-5.6 % Lipid Panel Test 03/31/17 07:50 Range/Units Triglycerides Level 147 0-150 mg/dl Cholesterol Level 172 0-200 mg/dl HDL Cholesterol 35 mg/dl Cholesterol/HDL Ratio 4.9 LDL Cholesterol, Calculated 108 mg/dl Medical Emergencies . Who to Call and When: Medical Emergencies: If at any time you feel your situation is an emergency, please call 911 immediately. Call 911 immediately or go to your nearest Emergency Room if you experience any of the following: Warning Signs and Symptoms of a Heart Attack * Chest pain that is not relieved by medication * Shortness of breath . Non-Emergent Contact Non-Emergency issues call your: Equal Opportunity Assistant Call Non-Emergent contact if: temperature is above 101, your pain is unusual for you . . "Provider Documentation" section prepared by Jorden Pizano. . AMI Core Measures Reason no ASA as I/P: Treatment provided - N/A Reason no ASA at D/C: Treatment provided - N/A Reason no statin as I/P: Treatment provided - N/A Reason no statin at D/C: Treatment provided - N/A VTE Core Measure Inpt VTE Proph given/why not?: SCD's
[2017-04-01] MEDS: DOXYCYCLINE IV 100 MG in DEXTROSE 5% 100ML 100 ML IV SCH (09:41)
[2017-04-01] MEDS: MIDAZOLAM 125MG/250ML D5W 250 ML IV PRN (10:11)
[2017-04-01] MEDS: FENTANYL 1250MCG/250ML NSS 250 ML IV PRN (10:12)
[2017-04-01] MEDS: PANTOprazole INJ 40 MG in SYRINGE 0 ML IV SCH (11:00)
--- NOTE | 2017-04-01 19:11 | Discharge Summary ---
Discharge Summary Date of Service Apr 01, 2017. Discharge Summary Admission Date: Mar 30, 2017 at 21:02 Discharge Date: Apr 01, 2017 Discharge Disposition: Acute care facility Principal Diagnosis: cardiogenic shock, acute hypoxic respiratory failure Immunizations: Have You Had Influenza Vaccine: Yes History of Tetanus Vaccine?: Yes History of Pneumococcal: Yes History of Hepatitis B Vaccine: Unknown Medication Reconciliation New Medications: Piperacillin/Tazobactam Sod (Zosyn 4-0.5 gm) 4.5 Gm/20 Ml Inj 4.5 MG IV Q6H for 14 Days Aspirin (Aspirin Low Strength) 81 Mg Chew 324 MG NJ DAILY, #60 Atorvastatin (Atorvastatin Calcium) 40 Mg Tab 80 MG NJ QAM, #30 TAB Budesonide/Formoterol Fumarate (Symbicort 80-4.5 Mcg/Act) 60 Puffs/Inhaler Aero 2 PUFFS INH BIDR, #1 INHA Insulin Aspart (Novolog Flexpen) 100 Units/Ml Inj 0 UNITS SC Q4H, #1 PEN Discharge Exam Review of systems cannot be obtained due to obtunded state Physical Exam: General Appearance: WD/WN, + severe distress, + obese Respiratory/Chest: + respiratory distress, + decreased breath sounds, + accessory muscle use, + rhonchi Cardiovascular: regular rate, rhythm, no murmur Extremities: + pedal edema, + swelling Hospital Course 51 M presented with acute hypoxic respiratory failure requiring ventilation, atrial tachycardia with abberant appearance and non stemi In the morning of April 01 the patient is being positioned for chest x-ray when he developed profound hypoxia. Evaluation of ET tube placement was undertaken this did not show significant improvement and emergent bronchoscopy was performed without significant mucus plugging the patient had an ABG showing marked hypercapnia concern that this was related to his cardiogenic shock and possibly ARDS decision was made to contact tertiary care facility that would provide ECMO treatment, the manufacturing project manager spoke to [facility] pain medicines accepted in transfer Previously in this hospital stay Cardiac, has known CABG, so elevated troponin could be supply demand from tachycardia, continued on heparin therapy for non-STEMI given the fact the troponin had risen from 8-33 acid will be given via his NG tube he does have some slight elevation of his transaminases we'll hold off on statin therapy at this time With concern for sepsis antibiotics for continued considering pulmonary source as he is having difficulty with ventilation Atrial tachycardia with aberrancy full anticoagulation at this point, was briefly given amiodarone acute systolic heart failure causing respiratory failure, echocardiogram shows depressed ejection fraction acute renal failure likely from ATN , continued attempts diuresis have not been successful Total Time Spent: Greater than 30 minutes This includes examination of the patient, discharge planning, medication reconciliation, and communication with other providers. Discharge Instructions Please refer to the electronic Patient Visit Report (Discharge Instructions) for additional information.
--- NOTE | 2017-04-02 05:25 | OPERATIVE REPORT ---
DATE OF OPERATION: 04/01/2017 PROCEDURE: Flexible fiberoptic bronchoscopy. INDICATION: Possible mucus plugging and atelectasis. CONSENT: Informed consent was obtained from the patient's son, Mr. Ravin Wiley Jr., as the patient himself was sedated, intubated, paralyzed, unable to make health care decisions. MONITORING: Throughout the procedure, continuous ECG monitoring, blood pressure monitoring and pulse oximetry was carried out. SEDATIVE: The patient was already on sedation with Propofol, Versed and Nimbex muscle relaxation given his status asthmaticus. DESCRIPTION OF THE PROCEDURE: After proper timeout was performed, a flexible fiberoptic bronchoscope was advanced through the ET tube and the entire tracheobronchial tree was surveyed. There were no mucus plugs in the trachea, lobar bronchi, main stem bronchi and segmental bronchi visualized. The patients hypercarbia appears to have asthmatic bronchoconstriction distal to the visualized area. At the conclusion of the procedure, the scope was retracted without any complications. There was hemostasis throughout the procedure. COMPLICATIONS: None apparent. The patient continued to saturate well post procedure. I attest to the content of the Intraoperative Record and any orders documented therein. Any exceptions are noted below. MTDD
--- NOTE | 2017-04-02 23:53 | Critical Care Progress Note ---
Critical Care Progress Note Date of Service Mar 31, 2017. Attending Dr. Angelo Subjective This is to reflect the events on 03/31/17 The patient continued to be on MV and paralysed/sedated. However, his peak airway pressure continued to improve and hypercapnia to resolve. He breifly went off levofed in the evening with improvement of his UO and family was updated Current SOFA Score SOFA Score Response (Comments) Value PaO2/FiO2 (mmHg) < 300 2 SaO2 / FIO2 142 - 220 2 Platelets (x10) > 150 0 Bilirubin (mg/dL) < 1.2 0 [place] Coma Score < 6 4 Level of Hypotension Dopamine > 5 mcq or Epi < 0.1 mcq 3 Creatinine (mg/dL) 2.0 - 3.4 2 Total 13 Previous SOFA Scores NA Assessment & Plan This is a 51 year old male with known history of CAD asthma and smoking as well as psoriasis on topical creams. He is admitted in acute on chronic respiratory failure likely due to asthma attack of AECOPD in the setting of NSTEMI, acute exacerbation of CHF both systolic and diastolic. CAP can not be ruled out. Patient is progressing in KAI. despite volume and pressor resuscitation. MAP has been consistently >65 mmHg and levophed tapered neuro continue with propofol, versed fentanyl and nimbex nimbex chosen for minimal interaction with the steroids leading to polymyoneuropathy of the ICU (the least among NM blockers) worsening renal function is a contraindication for precedex respiratory TV of 6ml/ Kg ideal body weight. he is 177 cm ideal body TV runs 460 to about 600. He is now on 540 ml. He has an autopeep of 8 we matched that. I increased flow rate to 75 liters/min with that peak airway is 38-40. RR is set to 20/min His I;E ratio is 1-3.5 as such we optimize the exhalation of CO2. air entry is better continue solumedrol symbicort levalbuterol and ipratropium for now. His CO2 went down to 51 cardiovascular he remains on levofed but briefly stopped this evening added aspirin and lipitor 90 mg daily heparin drip ongoing cardiology input appreciated. We will FU with them for possible cath renal creatinine increased to 1.8 technically he is in KAI. UO is 150 ml in the last 9 hours he is 1.5 liters positive Will send FeNa. he may need an inotrope but given ongoing STEMI that is contraindicated. FU and replete lytes resolving acidosis FU ECG ID continue vancomycin zosyn and doxycycline FU blood culture and sputum culture. He has fever now but his WBC is downtrending It is likley that he has multilobar pneumonia GI Will start NG feeds added pantoprazole for prophylaxis DVT he is on therapeutic heparin We need the murray the central line for management now no decubiti endocrine insulin drip for sugar control target 140-180 The patient is critically ill I spent 45 min of CC time managing him today exclusive of procedure time Consults & Procedures Consultants: cardiology Procedures: L IJ CVC insertion
--- NOTE | 2017-04-03 00:03 | Procedure Note ---
Procedure Note Procedure Date Mar 31, 2017. Procedure Description Procedure Name: L IJ CVC insertion Consent obtained: verbal (over phone. Initially from [facility] listed Ms Loera and then from Son Ravin) Performed by: attending Indications: therapeutic (administer medications in patient with STEMI SHOCK and respiratory failure) Contraindications: none Description: after time out was performed, the left aspect of the neck was prepared and draped in the usual sterile fashion the US vascular probe was ensheathed in the sterile jacket and used to identify the L IJ vein. Local anesthetic 1% lidocaine was used to anesthetize the skin overlying the IJ. Introducer needle was then inserted under US vision in real time. Blood flow back was obtained from first stick and the guidewire was inserted through the needle. The tract was dilated and then TL CVC was inserted over guidewire in the usual seldinger fashion Blood was retrieved from all 3 ports which were then flushed with sterile normal saline. Line initially sutured in place at 18 cm to the skin. no complications noted EBL <5 ml Post procedure CXR showed theCVC barely crossing the midline and it was advanced to 20 cm. At that point repet CXR showed the linetip in th SVC. It was re-dressed in the usual sterile fashion Complications: none Post-procedure vital signs: reviewed and stable
== END 2017-04-01 12:30 | disposition short-term general hospital (02) | DRG 208 ==
LOC: EDBD 16:55 → C.ED 16:57 → C.MSICU 21:02 → ENRESERV 21:07
PROVIDERS: ADMIT Family Medicine; ATTEND Internal Medicine
PROC: 5A2204Z Restoration of Cardiac Rhythm, Single (ICD-10-PCS; principal; 2017-03-30)
PROC: 0BH17EZ Insertion of Endotracheal Airway into Trachea, Via Natural or Artificial Opening (ICD-10-PCS; principal; 2017-03-30)
PROC: 5A1945Z Respiratory Ventilation, 24-96 Consecutive Hours (ICD-10-PCS; principal; 2017-03-30)
PROC: 02HV33Z Insertion of Infusion Device into Superior Vena Cava, Percutaneous Approach (ICD-10-PCS; 2017-03-31)
PROC: 0BJ08ZZ Inspection of Tracheobronchial Tree, Via Natural or Artificial Opening Endoscopic (ICD-10-PCS; 2017-04-01)
DX: J96.01 Acute respiratory failure with hypoxia (principal); A41.9 Sepsis, unspecified organism; J44.0 Chronic obstructive pulmonary disease with (acute) lower respiratory infection; J18.9 Pneumonia, unspecified organism; I21.4 Non-ST elevation (NSTEMI) myocardial infarction; I50.23 Acute on chronic systolic (congestive) heart failure; R57.0 Cardiogenic shock; N17.0 Acute kidney failure with tubular necrosis; J44.1 Chronic obstructive pulmonary disease with (acute) exacerbation; I48.92 Unspecified atrial flutter; J96.02 Acute respiratory failure with hypercapnia; J45.909 Unspecified asthma, uncomplicated; I25.2 Old myocardial infarction; I25.10 Atherosclerotic heart disease of native coronary artery without angina pectoris; I11.9 Hypertensive heart disease without heart failure; E78.5 Hyperlipidemia, unspecified; L40.9 Psoriasis, unspecified; E66.9 Obesity, unspecified; F17.200 Nicotine dependence, unspecified, uncomplicated; Z51.81 Encounter for therapeutic drug level monitoring; Z79.899 Other long term (current) drug therapy; Z95.1 Presence of aortocoronary bypass graft; Z68.36 Body mass index [BMI] 36.0-36.9, adult